=== PATIENT | female | born 1980 | race Two or more races ===

== ENCOUNTER 2017-08-31 01:38 | Emergency (ER) | payer SELFPAY ==
[~2017-08-31] VITALS: Ht 167.6 cm; Wt 72.6 kg
--- NOTE | 2017-08-31 01:50 | NUR ---
PT A/OX4 BREATHING EFFORTLESSLY ON ROOM AIR, PT C/O ABD PAIN X 3 DAYS PT DENIES N/V OR DIARRHEA, IV PLACED PT IN GOWN, ON MONITOR, PT FRIEND AT BEDSIDE, BLOOD DRAWN AND SENT TO LAB, PT STATES SHE IS NOT ABLE TO GIVE URINE AT THIS TIME, WAIVER OBTAINED, MADE AWARE WILL CONTINUE TO MONITOR.
[2017-08-31] MEDS ORDERED: HYDROMORPHONE INJ 2 MG/ML DISP.SYRIN IV ONE (02:00)
[2017-08-31] MEDS ORDERED: ONDANSETRON HCL/PF 4 MG/2 ML VIAL IVP ONE (02:00)
[2017-08-31] MEDS ORDERED: ONDANSETRON HCL/PF 4 MG/2 ML VIAL ONE (02:00)
[2017-08-31] MEDS ORDERED: IV NS 0.9% 1,000 ML BAG IV ONE (02:00)
[2017-08-31] MEDS ORDERED: HYDROMORPHONE INJ 2 MG/ML DISP.SYRIN ONE (02:00)
--- NOTE | 2017-08-31 02:10 | NUR ---
PT BACK FROM CT AND STATES SHE IS FEELING BETTER WILL CONTINUE TO MONITOR.
--- NOTE | 2017-08-31 02:13 | NUR ---
PT TO CT
[2017-08-31 02:18] LABS: BASOPHILS % (AUTO) 0.2 % (0.0-2.0); EOSINOPHILS # (AUTO) 0.2 /CMM (0.0-0.7); HEMATOCRIT 35 % (33-45); HEMOGLOBIN 11.6 g/dL (11.5-14.8); LYMPHOCYTES # (AUTO) 3.2 /CMM (0.8-4.8); LYMPHOCYTES % (AUTO) 17.2 % (20.0-44.0); MEAN CORPUSCULAR HEMOGLOBIN 33 PG (26.0-33.0); MEAN CORPUSCULAR HGB CONC 34 g/dl (31.0-36.0); MEAN CORPUSCULAR VOLUME 98 fL (82-100); MONOCYTES # (AUTO) 1.1 /CMM (0.1-1.30); MONOCYTES % (AUTO) 5.9 % (2.0-12.0); NEUTROPHILS % (AUTO) 75.7 % (43.0-81.0); PLATELET COUNT (AUTO) 277 /CMM (150-450); RDW COEFFICIENT OF VARIATION 17.5 (11.5-15.0); RED BLOOD CELL COUNT(AUTO) 3.54 MIL/uL (4.0-5.2); WHITE BLOOD COUNT (AUTO) 18.6 K/uL (4.3-11.0)
[2017-08-31 02:24] LABS: APPEARANCE,URINE SL CLOUDY (CLEAR); BILIRUBIN,URINE 1+ (NEGATIVE); BLOOD, URINE NEGATIVE Ery/uL (NEGATIVE); COLOR,URINE YELLOW (YELLOW); KETONES,URINE NEGATIVE (NEGATIVE); LEUKOCYTE ESTERASE ,URINE 2+ (NEGATIVE); NITRITE, URINE POSITIVE (NEGATIVE); PH,URINE 6.5 (5.0-8.0); PROTEIN,URINE NEGATIVE (NEGATIVE); UGLUCOSE NEGATIVE (NEGATIVE)
[2017-08-31 02:34] LABS: BACTERIA,URINE 4+ /HPF (None Seen); CALCIUM, SERUM 8.9 mg/dL (8.5-10.1); CREATININE 0.8 mg/dL (0.6-1.3); POTASSIUM 3.4 mmol/L (3.5-5.1); RBC,URINE NONE SEEN /HPF (0-2); SQUAMOUS EPITHELIAL CELL,UR Moderate /HPF (None Seen)
[2017-08-31 02:37] LABS: INR 1.06 (0.87-1.13)
[2017-08-31 02:40] LABS: ALBUMIN 3.3 g/dL (3.4-5.0); BILIRUBIN,TOTAL 1.4 mg/dL (0.2-1.0)
[2017-08-31] MEDS ORDERED: ACETAMINOPHEN 325 MG TABLET ONE (03:39)
[2017-08-31] MEDS ORDERED: CEPHALEXIN MONOHYDRATE 500 MG CAPSULE PO ONE ×2 (03:40→04:00)
[2017-08-31] MEDS ORDERED: ACETAMINOPHEN 325 MG TABLET PO ONE (04:00)
--- NOTE | 2017-08-31 04:07 | NUR ---
Patient discharged to home in stable condition. Written and verbal after care instructions given. Patient verbalizes understanding of instruction.IV removed. Catheter intact and site benign. Pressure and 4x4 applied to site. No bleeding noted.
[2017-08-31 04:11] VITALS: BP 134/74
== END 2017-08-31 04:12 | disposition home or self-care (01) ==
LOC: EDBD → ER 01:41
DX: N12 Tubulo-interstitial nephritis, not specified as acute or chronic (principal); K76.0 Fatty (change of) liver, not elsewhere classified; K70.10 Alcoholic hepatitis without ascites; J45.909 Unspecified asthma, uncomplicated
CPT/HCPCS: 36415; 74176; 80048; 80076; 81001; 83690; 84703 ×2; 85025; 85730; 87077; 87086; 87186; 96361; 96374; 96375; 99285; J1170; J2405; 81000-TC

== ENCOUNTER 2017-09-06 15:03 | Inpatient (IN) | payer MEDICAID ==
[~2017-09-06] VITALS: Ht 167.6 cm; Wt 72.6 kg
--- NOTE | 2017-09-06 15:15 | NUR ---
BIB SELF C/O R FLANK PAIN X 1 WEEK. NAD NOTED, VSS, RESP EVEN AND UNLABORED. WAITING FOR MD DIAZ.
[2017-09-06] MEDS ORDERED: IV NS 0.9% 1,000 ML BAG IV ONE ×2 (16:00→19:30)
[2017-09-06] MEDS ORDERED: KETOROLAC TROMETHAMINE INJ 30 MG/ML VIAL IV ONE (16:00)
[2017-09-06 16:03] LABS: APPEARANCE,URINE Clear (CLEAR); BILIRUBIN,URINE Negative (NEGATIVE); BLOOD, URINE Negative Ery/uL (NEGATIVE); COLOR,URINE Yellow (YELLOW); KETONES,URINE Negative (NEGATIVE); LEUKOCYTE ESTERASE ,URINE Trace (NEGATIVE); NITRITE, URINE Negative (NEGATIVE); PH,URINE 6.5 (5.0-8.0); PROTEIN,URINE Negative (NEGATIVE); UGLUCOSE Negative (NEGATIVE); UROBILINOGEN,URINE 0.2 EU/dL (0.2)
[2017-09-06] MEDS ORDERED: KETOROLAC TROMETHAMINE INJ 30 MG/ML VIAL ONE (16:05)
[2017-09-06 16:09] LABS: BASOPHILS # (AUTO) 0.3 /CMM (0.0-0.2); BASOPHILS % (AUTO) 2.2 % (0.0-2.0); EOSINOPHILS # (AUTO) 0.4 /CMM (0.0-0.7); EOSINOPHILS % (AUTO) 3.1 % (0.0-6.0); HEMATOCRIT 34 % (33-45); HEMOGLOBIN 11.2 g/dL (11.5-14.8); LYMPHOCYTES # (AUTO) 2.2 /CMM (0.8-4.8); LYMPHOCYTES % (AUTO) 17.9 % (20.0-44.0); MEAN CORPUSCULAR HEMOGLOBIN 33 PG (26.0-33.0); MEAN CORPUSCULAR HGB CONC 33 g/dl (31.0-36.0); MEAN CORPUSCULAR VOLUME 100 fL (82-100); NEUTROPHILS # (AUTO) 8.5 /CMM (1.8-8.9); NEUTROPHILS % (AUTO) 68.8 % (43.0-81.0); PLATELET COUNT (AUTO) 418 /CMM (150-450); RDW COEFFICIENT OF VARIATION 16.6 (11.5-15.0); RED BLOOD CELL COUNT(AUTO) 3.42 MIL/uL (4.0-5.2); WHITE BLOOD COUNT (AUTO) 12.4 K/uL (4.3-11.0)
[2017-09-06 16:17] LABS: CALCIUM, SERUM 8.9 mg/dL (8.5-10.1); CREATININE 0.6 mg/dL (0.6-1.3); POTASSIUM 3.4 mmol/L (3.5-5.1)
[2017-09-06 16:20] LABS: BACTERIA,URINE Few /HPF (None Seen); RBC,URINE 0-2 /HPF (0-2)
[2017-09-06 16:21] LABS: SQUAMOUS EPITHELIAL CELL,UR Moderate /HPF (None Seen)
[2017-09-06 16:23] LABS: BILIRUBIN,DIRECT 0.4 mg/dL (0.0-0.2); BILIRUBIN,TOTAL 0.8 mg/dL (0.2-1.0); TOTAL PROTEIN, SERUM 7.6 g/dL (6.4-8.2)
[2017-09-06] MEDS ORDERED: CIPROFLOXACIN IV RTU 400 MG in PREMIX 1 EA IV ONE (17:30)
--- NOTE | 2017-09-06 17:35 | NUR ---
CALLED PHARMACY FOR PREMIX CIPRO
[2017-09-06] MEDS ORDERED: ALBU18HF2 IH (19:23)
[2017-09-06] MEDS ORDERED: CEFTRIAXONE 1 G in IV D5W 50 ML IV ONE (19:30)
[2017-09-06] MEDS ORDERED: CEFTRIAXONE 1GM BAG (ER ONLY) 50 ML IV ONE (19:36)
[2017-09-06] MEDS ORDERED: MAG HYDROX/AL HYDROX/SIMETH 30 ML UDC PO PRN (20:00)
[2017-09-06] MEDS ORDERED: IV NS 0.9% 1,000 ML IV SCH (20:00)
[2017-09-06] MEDS ORDERED: ONDANSETRON HCL/PF 4 MG/2 ML VIAL IVP PRN (20:00)
[2017-09-06] MEDS ORDERED: MAGNESIUM HYDROXIDE 30 ML UDC PO PRN (20:00)
[2017-09-06] MEDS ORDERED: Z GUARD REMEDY 2 OZ OINT TP PRN (20:00)
--- NOTE | 2017-09-06 20:21 | NUR ---
REPORT GIVEN TO MARQUISE
--- NOTE | 2017-09-06 20:45 | NUR ---
RN NOTES RECEIVED NEW ADMISSION FROM ER, FEMALE, ALERT AND ORIENTED X4, WITH DX OF PYELOPNEPHRITIS, CALM, NO SOB, NO RESPIRATORY DISTRESS, COOPERATIVE, NO COMPLAIN OF PAIN AT THIS TIME, RECEIVED MEDICATION FROM ER. LUNG SOUNDS ARE CLEAR, ABDOMEN SOFT AND NON-TENDER, ACTIVE BOWEL SOUNDS, RIGHT FA PERIPHERAL LINE IS PATENT AND INFUSING WITH NS FROM ER. PATIENT ADMITTED TO SMOKING 20 CIGARETTES PER DAY AND DRINKS VODKA, 1 BOTTLE PER WEEK. PER PATIENT USED TO SMOKE 40 CIGARETTES PER DAY. NOT WILLING TO QUIT DRINKING AND SMOKING ANYTIME SOON. EDUCATED PATIENT TO PLAN OF CARE, ORIENTED TO ROOM AND USE OF CALL LIGHT. NEEDS ATTENDED, CALL LIGHT WITHIN REACH.
[2017-09-06 21:45] VITALS: BP 145/76
[2017-09-06] MEDS: HYDROCODONE/APAP 5/325MG 1 EACH TABLET PO PRN (21:51)
--- NOTE | 2017-09-06 23:14 | NUR ---
RN NOTES SEEN BY DR. ALLEN AT THE BEDSIDE
[2017-09-06] MEDS ORDERED: MORPHINE SULFATE INJ 2 MG/ML DISP.SYRIN ONE (23:45)
--- NOTE | 2017-09-06 23:55 | NUR ---
RN NOTES PATIENT WENT DOWN TO SMOKE, REFUSED TO QUIT, GIVEN EDUCATIONAL MATERIALS FOR SMOKING CESSATION, PATIENT SIGNED CONSENT TO SMOKE
[2017-09-07] MEDS: MORPHINE SULFATE INJ 2 MG/ML DISP.SYRIN IV PRN ×2 (00:05→07:59)
[2017-09-07] MEDS: ZOLPIDEM TARTRATE 5 MG TABLET PO PRN ×2 (01:29→23:22)
[2017-09-07] MEDS ORDERED: ALBUTEROL FS 2.5 MG/3 ML VIAL.NEB NEB PRN (01:30)
[2017-09-07] MEDS: HYDROCODONE/APAP 5/325MG 1 EACH TABLET PO PRN ×2 (02:33→06:33)
[2017-09-07 04:00] VITALS: BP 145/76
--- NOTE | 2017-09-07 06:28 | NUR ---
RN NOTES PATIENT IS ALERT AND AWAKE, NO SOB, RECEIVED BREATHING TX X1, PROVIDED PAIN MEDICATION TO PAIN IN RIGHT FLANK, NO ADVERSE SIDE EFFECTS TO NARCOTIC MEDICATION, NO RESPIRATORY DISTRESS, PAIN CONTROLLED MOMENTARILY BY MEDICATION. LEFT FA PERIPHERAL LINE IS INFUSING WELL, NEEDS ATTENDED, CALL LIGHT WITHIN REACH.
[2017-09-07 07:16] LABS: BASOPHILS % (AUTO) 0.2 % (0.0-2.0); EOSINOPHILS # (AUTO) 0.4 /CMM (0.0-0.7); EOSINOPHILS % (AUTO) 3.4 % (0.0-6.0); HEMATOCRIT 29 % (33-45); HEMOGLOBIN 9.8 g/dL (11.5-14.8); LYMPHOCYTES # (AUTO) 2.8 /CMM (0.8-4.8); LYMPHOCYTES % (AUTO) 25.6 % (20.0-44.0); MEAN CORPUSCULAR HEMOGLOBIN 34 PG (26.0-33.0); MEAN CORPUSCULAR HGB CONC 34 g/dl (31.0-36.0); MEAN CORPUSCULAR VOLUME 101 fL (82-100); MONOCYTES # (AUTO) 0.9 /CMM (0.1-1.30); MONOCYTES % (AUTO) 8.3 % (2.0-12.0); NEUTROPHILS # (AUTO) 6.9 /CMM (1.8-8.9); NEUTROPHILS % (AUTO) 62.5 % (43.0-81.0); PLATELET COUNT (AUTO) 339 /CMM (150-450); RDW COEFFICIENT OF VARIATION 18.1 (11.5-15.0); RED BLOOD CELL COUNT(AUTO) 2.87 MIL/uL (4.0-5.2); WHITE BLOOD COUNT (AUTO) 11.1 K/uL (4.3-11.0)
[2017-09-07 07:21] LABS: CREATININE 0.7 mg/dL (0.6-1.3); MAGNESIUM 1.4 mg/dL (1.8-2.4); PHOSPHORUS 3.5 mg/dL (2.5-4.9); POTASSIUM 3.4 mmol/L (3.5-5.1)
--- NOTE | 2017-09-07 07:30 | NUR ---
MS/RN Patient received Patient received from night time babysitter. C/O pain, morphine 2mg administered as ordered, will monitor effectiveness.
[2017-09-07 08:00] VITALS: BP 132/85
[2017-09-07 09:20] LABS: IRON, SERUM 24 ug/dl (50-175); TOTAL IRON BINDING CAPACITY 235 ug/dl (250-450)
[2017-09-07] MEDS ORDERED: POTASSIUM PHOSPHATE MM 15 MMOL in IV D5W 250 ML IV SCH (09:30)
--- NOTE | 2017-09-07 10:00 | NUR ---
MS/RN Labs Morning labs reviewed: -WBC 11.1 -Mag 1.4 -K+ 3.4 All lab results relayed to MD and replaced.
[2017-09-07] MEDS ORDERED: POTASSIUM CHLORIDE 20 MEQ TAB.PRT.SR PO SCH ×2 (11:00→12:30)
[2017-09-07] MEDS: POTASSIUM PHOSPHATE MM 7.5 MMOL in IV D5W 100 ML IV SCH ×2 (11:10→18:15)
--- NOTE | 2017-09-07 12:00 | NUR ---
MS/RN Potassium phos Two bags of K+ phos ordered, first bag hung.
--- NOTE | 2017-09-07 12:10 | NUR ---
MS/RN S/B Dr Nascimento Seen by Dr Nascimento - labs ordered for tomorrow.
[2017-09-07] MEDS: IBUPROFEN 400 MG TABLET PO PRN ×2 (13:07→18:51)
[2017-09-07] MEDS: IV NS 0.9% 1,000 ML IV PRN (15:47)
[2017-09-07] MEDS: Magnesium 1GM/D5W 100ML PREMIX 100 ML IV SCH ×4 (15:47→23:00)
[2017-09-07 16:00] VITALS: BP 129/79
--- NOTE | 2017-09-07 16:00 | NUR ---
MS/RN Midline Midline inserted to right upper arm, 18g.
--- NOTE | 2017-09-07 18:26 | NUR ---
MS/RN End note No changes in patient's condition. All IV replacements reunning behind schedule due to waiting for midline to be inserted. Pain well controlled with ibuprofen, has only required one dose of morphine which was administered this morning. Will continue to monitor andendorse to security shift manager.
--- NOTE | 2017-09-07 19:35 | NUR ---
MS RN OPENING NOTES RECEIVED PATIENT SITTING IN BED, NO SOB, NO ACUTE DISTRESS NOTED. A & O X 4. HAS SLIGHT C/O PAIN TO RIGHT LOWER BACK, WOULD LIKE TO WAIT & TAKE TYLENOL WHEN ITS DUE . IV ACCESS TO RUE, MID LINE RUNNING WITH POTASSIUM/PHOS & MAGNESIUM ORDERED. 2 MORE MAGNESIUM BAGS WILL BE REPLACED TONIGHT. WILL CONTINUE WITH NS @ 125ML/HR ONCE OTHER INFUSIONS ARE DONE. NO S/S OF INFECTION NOTED AT MIDLINE SITE. TAKES PO INTAKE. ABLE TO VERBALIZE PAIN LEVEL & NEEDS. BED IN LOW LOCKED POSITION. CALL LIGHT WITHIN REACH. WILL CONTINUE TO MONITOR.
[2017-09-07 20:00] VITALS: BP 128/80
[2017-09-07] MEDS: ACETAMINOPHEN 325 MG TABLET PO PRN (20:33)
--- NOTE | 2017-09-07 20:33 | NUR ---
PRN TYLENOL GIVEN PATIENT C/O PAIN TO RIGHT LOWER BACK, PREFERRED TO TAKE TYLENOL AT THIS TIME. PRN TYLENOL GIVEN. WILL REASSESS INDICATED.
--- NOTE | 2017-09-07 21:05 | NUR ---
MS RN NOTES PATIENT WENT OUT OF THE UNIT TO SMOKE WITH THE FAMILY MEMBER.
--- NOTE | 2017-09-07 21:35 | NUR ---
MS RN NOTES PATIENT CAME BACK FROM SMOKING WITH THE FAMILY MEMBER. HAD TO DISCONNECT RUNNING IV MAGNESIUM & OTHER IV POTASSIUM/PHOS WHILE OUT TO SMOKE. CONNECTED BACK TO IV INFUSIONS.
--- NOTE | 2017-09-07 22:00 | NUR ---
MS RN NOTES PATIENT AGAIN WENT OUT TO ESCORT THE FAMILY MEMBER, DISCONNECTED THE IV INFUSIONS PER PATIENT'S REQUEST. WILL CONNECT IT BACK ONCE BACK IN THE UNIT.
--- NOTE | 2017-09-07 22:30 | NUR ---
MS RN NOTES PATIENT CAME BACK TO THE UNIT AFTER ESCORTING THE FAMILY MEMBER OUT. CONNECTED BACK THE REQUIRED IV INFUSIONS. NO S/S OF INFECTION NOTED AT THE MIDLINE SITE. OBSERVING CLOSELY.
[2017-09-07] MEDS ORDERED: MORPHINE SULFATE INJ 10 MG/ML DISP.SYRIN ONE (22:50)
--- NOTE | 2017-09-07 22:51 | NUR ---
RN NOTES: DR ALLEN CURRENTLY IN THE UNIT, INFORMED THAT PER PHARMACY WE NEED TO CHANGE THE ORDER THERE IS NO 2MG OF MORPHINE AVAILABLE, PT IS GETTING MORPHINE 2MG IVP Q4HR FOR PAIN MANAGEMENT, INFORMED THERE'S ONLY 10MG AVAILABLE, SO WE'LL JUST WASTE THE OTHERS AND GIVE THE DESIRED/ORDERED DOSE FOR THE PT
[2017-09-07] MEDS: MORPHINE SULFATE INJ 10 MG/ML DISP.SYRIN IV PRN (22:53)
--- NOTE | 2017-09-07 22:53 | NUR ---
PRN MORPHINE GIVEN PATIENT VERBALIZED C/O PAIN TO THE RIGHT LOWER BACK 9/10, PRN MORPHINE GIVEN ORDERED. WILL REASSESS INDICATED.
--- NOTE | 2017-09-07 23:22 | NUR ---
PRN AMBIEN PATIENT REQUESTED FOR AMBIEN TO AID IN SLEEP. PRN AMBIEN GIVEN ORDERED. ALSO ENCOURAGED TO RELAX & TRY TO ADJUST HER POSITION TO COMFORTABLE POSITION TO HELP IN SLEEP & TO REDUCE THE PAIN. PATIENT VERBALIZED UNDERSTANDING & REQUESTED TO TURN THE LIGHTS OFF IN THE ROOM. WILL CONTINUE TO MONITOR.
[2017-09-08] MEDS: CEFTRIAXONE 1 G in IV D5W 50 ML IV SCH ×2 (00:12→19:58)
[2017-09-08] MEDS ORDERED: MORPHINE SULFATE INJ 10 MG/ML DISP.SYRIN ONE (02:56)
[2017-09-08] MEDS: MORPHINE SULFATE INJ 10 MG/ML DISP.SYRIN IV PRN ×2 (03:07→09:16)
[2017-09-08] MEDS: HYDROCODONE/APAP 5/325MG 1 EACH TABLET PO PRN (06:08)
--- NOTE | 2017-09-08 06:43 | NUR ---
MS RN CLOSING NOTES PATIENT SLEPT INTERMITTENTLY AT NIGHT. A & O X 4. HAD C/O PAIN TO RIGHT LOWER BACK & PRN PAIN MEDICINES WERE ADMINISTERED. AMBULATORY, CONTINENT, USES BRP. IV ACCESS TO RUE, MIDLINE RUNNING WITH NS @ 125 ML/HR, INTACT PATENT. BED IN LOW LOCKED POSITION. CALL LIGHT WITHIN REACH. NO NAUSEA/VOMITING NOTED AT NIGHT ABLE TO TOLERATE PO FLUID INTAKE. MAGNESIUM X 4 BAGS WERE REPLACED. WILL ENDORSE TO AM SHIFT NURSE FOR CONTINUITY OF CARE.
[2017-09-08 07:12] LABS: BASOPHILS % (AUTO) 0.5 % (0.0-2.0); EOSINOPHILS # (AUTO) 0.5 /CMM (0.0-0.7); EOSINOPHILS % (AUTO) 5.2 % (0.0-6.0); HEMATOCRIT 29 % (33-45); HEMOGLOBIN 9.6 g/dL (11.5-14.8); LYMPHOCYTES # (AUTO) 2.6 /CMM (0.8-4.8); LYMPHOCYTES % (AUTO) 28.7 % (20.0-44.0); MEAN CORPUSCULAR HEMOGLOBIN 34 PG (26.0-33.0); MEAN CORPUSCULAR HGB CONC 33 g/dl (31.0-36.0); MEAN CORPUSCULAR VOLUME 101 fL (82-100); MONOCYTES # (AUTO) 0.7 /CMM (0.1-1.30); MONOCYTES % (AUTO) 8.2 % (2.0-12.0); NEUTROPHILS # (AUTO) 5.2 /CMM (1.8-8.9); NEUTROPHILS % (AUTO) 57.4 % (43.0-81.0); PLATELET COUNT (AUTO) 364 /CMM (150-450); RDW COEFFICIENT OF VARIATION 17.7 (11.5-15.0); RED BLOOD CELL COUNT(AUTO) 2.86 MIL/uL (4.0-5.2)
[2017-09-08 07:18] LABS: CALCIUM, SERUM 7.6 mg/dL (8.5-10.1); CREATININE 0.6 mg/dL (0.6-1.3); POTASSIUM 3.8 mmol/L (3.5-5.1)
[2017-09-08 07:24] LABS: MAGNESIUM 2.5 mg/dL (1.8-2.4); PHOSPHORUS 3.3 mg/dL (2.5-4.9)
--- NOTE | 2017-09-08 07:25 | NUR ---
RN OPEN NOTES RECEIVED REPORT FROM CAN SORTER NURSE. WILL CONTINUE TO ASSESS AND MONITOR PATIENT THROUGH OUT MY SHIFT
[2017-09-08 08:00] VITALS: BP 136/76
[2017-09-08] MEDS: IV NS 0.9% 1,000 ML IV PRN (08:26)
--- NOTE | 2017-09-08 09:20 | NUR ---
PAIN 10/10 LOWER BACK, RADIATING TO FRONT. MORPHINE 2MG ADMINISTERED. BP 136/76 HR 64
[2017-09-08] MEDS: IBUPROFEN 400 MG TABLET PO PRN ×2 (12:25→19:58)
[2017-09-08] MEDS: ACETAMINOPHEN 325 MG TABLET PO PRN (14:11)
[2017-09-08 16:00] VITALS: BP 134/82
--- NOTE | 2017-09-08 16:00 | NUR ---
PATIENT WAS ABLE TO TAKE A SHOWER.
--- NOTE | 2017-09-08 16:15 | NUR ---
MIDLINE DRESSING CHANGED PER HOSPITAL PROTOCOL
--- NOTE | 2017-09-08 17:02 | NUR ---
DIETARY CONSULT RECOMMENDED LOW FAT, LOW CHOLESTEROL DIET. DIET WAS MODIFIED
--- NOTE | 2017-09-08 19:39 | NUR ---
RN CLOSING NOTES REPORT GAVE TO PATIENT ACCOUNTS CLERK NURSE. PATIENT IS IN BED, ALERT AND ORIENTED TO NAME, PLACE AND TIME. MIDLINE IS INTACT AND PATENT. ALL NURSING CARE ANTICIPATED. PATIENT KEPT CLEAN AND DRY. BED IN LOW POSITION, LOCKED AND TWO SIDE RAILS ARE UP. CALL LIGHT WITHIN REACH.
--- NOTE | 2017-09-08 19:50 | NUR ---
MS RN OPENING NOTES RECEIVED PATIENT SITTING IN BED, NO NAUSEA/VOMITING NOTED. HAD C/O PAIN 4/10 TO RIGHT FLANK AREA, WILL ADMINISTER MOTRIN REQUESTED BY THE PATIENT. IV ACCESS TO RUE, MID LINE RUNNING WITH NS 125 ML/HR, INTACT PATENT. NO OTHER CONCERNS NOTED AT THIS TIME. ABLE TO AMBULATE TOLERATED, USES BRP. BED IN LOW LOCKED POSITION. CALL LIGHT WITHIN REACH. WILL CONTINUE TO MONITOR.
--- NOTE | 2017-09-08 19:58 | NUR ---
PRN MOTRIN GIVEN PATIENT VERBALIZED NEED FOR PAIN MEDICINE DUE TO PAIN IN RIGHT FLANK AREA AT SCALE 4/10 & ONLY WANTED TO TAKE MOTRIN AT THIS TIME. PRN MOTRIN GIVEN. WILL REASSESS FOR THE PAIN.
[2017-09-08 20:00] VITALS: BP 139/88
--- NOTE | 2017-09-08 20:01 | NUR ---
MS RN NOTES PATIENT WANTED TO GO SEE HER FRIEND ON THE GROUND FLOOR & REASSURED THAT SHE WILL BE BACK AFTER GETTING THE FOOD FROM HER FRIEND. WILL MONITOR CLOSELY.
--- NOTE | 2017-09-08 20:20 | NUR ---
MS RN NOTES PATIENT CAME BACK TO THE UNIT WITH HER FOOD.
[2017-09-08] MEDS: ZOLPIDEM TARTRATE 5 MG TABLET PO PRN (22:15)
--- NOTE | 2017-09-08 22:15 | NUR ---
PRN AMBIEN GIVEN PATIENT ASKED FOR AMBIEN TO AID IN SLEEP. PRN AMBIEN GIVEN ORDERED BY MD. WILL REASSESS FOR EFFECTIVENESS.
--- NOTE | 2017-09-08 22:30 | NUR ---
REFUSED IV FLUIDS PATIENT REFUSED TO CONTINUE IV HYDRATION, STATED SHE DRINKS PLENTY OF FLUIDS WHILE AWAKE & DO NOT WANT IV HYDRATION AT NIGHT. SHE GETS UNCOMFORTABLE & NOT ABLE TO SLEEP WITH THE IV LINE CONNECTED. RISKS & BENEFITS WERE EXPLAINED & VERBALIZED UNDERSTANDING BUT STILL CONTINUED REFUSING TO HAVE IV HYDRATION DONE ORDERED.
[2017-09-09] MEDS: MORPHINE SULFATE INJ 10 MG/ML DISP.SYRIN IV PRN (02:40)
--- NOTE | 2017-09-09 02:40 | NUR ---
PRN MORPHINE GIVEN PATIENT VERBALIZED C/O PAIN RIGHT FLANK AREA AT SCALE 9/10 & REQUESTED FOR MORPHINE. PRN MORPHINE GIVEN. WILL REASSESS FOR EFFECTIVENESS. V/S WNL.
[2017-09-09] MEDS: ACETAMINOPHEN 325 MG TABLET PO PRN ×3 (03:50→14:57)
--- NOTE | 2017-09-09 03:50 | NUR ---
PRN TYLENOL GIVEN PATIENT CONTINUED VERBALIZING C/O PAIN IN RIGHT FLANK AREA, AT SCALE 4/10 & ASKED FOR TYLENOL. PRN TYLENOL GIVEN. WILL MONITOR FOR EFFECTIVENESS.
--- NOTE | 2017-09-09 06:48 | NUR ---
MS RN CLOSING NOTES PATIENT SLEPT INTERMITTENTLY, HAD C/O PAIN MULTIPLE TIMES. PAIN MGMT DONE, PRN MEDS GIVE ORDERED. REFUSED TO CONTINUE IV FLUIDS, STATED SHE IS DRINKING ENOUGH PO FLUIDS & CONNECTED IV LINE IS VERY UNCOMFORTABLE TO MANAGE WHILE SLEEPING, RUE MIDLINE INTACT PATENT & FLUSHED WITH NS TO KEEP OPEN. BED IN LOW LOCKED POSITION. CALL LIGHT WITHIN REACH. WILL ENDORSE TO AM SHIFT.
[2017-09-09 07:17] LABS: BASOPHILS % (AUTO) 0.3 % (0.0-2.0); EOSINOPHILS # (AUTO) 0.4 /CMM (0.0-0.7); EOSINOPHILS % (AUTO) 4.4 % (0.0-6.0); HEMATOCRIT 30 % (33-45); HEMOGLOBIN 10.3 g/dL (11.5-14.8); LYMPHOCYTES # (AUTO) 3.1 /CMM (0.8-4.8); LYMPHOCYTES % (AUTO) 33.5 % (20.0-44.0); MEAN CORPUSCULAR HEMOGLOBIN 34 PG (26.0-33.0); MEAN CORPUSCULAR HGB CONC 34 g/dl (31.0-36.0); MEAN CORPUSCULAR VOLUME 101 fL (82-100); MONOCYTES # (AUTO) 0.6 /CMM (0.1-1.30); MONOCYTES % (AUTO) 6.3 % (2.0-12.0); NEUTROPHILS # (AUTO) 5.1 /CMM (1.8-8.9); NEUTROPHILS % (AUTO) 55.5 % (43.0-81.0); PLATELET COUNT (AUTO) 447 /CMM (150-450); RDW COEFFICIENT OF VARIATION 17.3 (11.5-15.0); RED BLOOD CELL COUNT(AUTO) 3.01 MIL/uL (4.0-5.2); WHITE BLOOD COUNT (AUTO) 9.2 K/uL (4.3-11.0)
--- NOTE | 2017-09-09 07:30 | NUR ---
MS/RN Patient received Patient received form wardrobe manager. No immediate needs at this time, call light within reach, will continue to montor and ensure safety.
[2017-09-09 07:39] LABS: CALCIUM, SERUM 7.9 mg/dL (8.5-10.1); CREATININE 0.7 mg/dL (0.6-1.3); MAGNESIUM 2.3 mg/dL (1.8-2.4); POTASSIUM 4.7 mmol/L (3.5-5.1)
[2017-09-09 08:00] VITALS: BP 140/85
--- NOTE | 2017-09-09 09:31 | NUR ---
MS/RN Pain Patient complaining of abdominal pain 07/24, requested morphine. Morphine 2mg removed from omin[facility] but not administered as patient changed her mind about receiving morphine as room mate heard telling her to not get morphine as she didn't want her to sleep. Tylenol 650mg administered instead.
[2017-09-09] MEDS ORDERED: LEVO750T21 PO (11:05)
[2017-09-09] MEDS ORDERED: FLUC200T PO (11:05)
--- NOTE | 2017-09-09 12:00 | NUR ---
MS/RN S/B Dr Nascimento Seen by Dr Nascimento - patient to be discharged today and follow up with primary care doctor in three days. Prescription for diflucan and levaquin sent electronically to pharmacy.
--- NOTE | 2017-09-09 15:28 | NUR ---
MS/occupational therapy technician Patient discharged to home in stable condition. Midline and name band removed, all personal belongings signed for on belongings list. Exit care signed and patient provided a copy of both exit care and medical record. Educated patient about signs and symptoms and when to return to the nearest emergency room. Provided with information on how to register with a primary care doctor, per patient, understood and will register. Escorted to main lobby by MARINE ELECTRONICS TECHNICIAN, taxi voucher provided, pink copy of voucher given to nursing supervisor telephone clerks.
--- NOTE | 2017-09-09 18:54 | NUR ---
MS/RN Late entry - Non administer morphine Patient requested morphine to be given, upon withdrawing medication from omnicell, 8mg wasted (as partial dose) as ordered dose 2mg. Patient then refused to have morphine, so 2mg dose that was to be administered was wasted, witnessed by second RN.
== END 2017-09-09 15:10 | disposition home or self-care (01) | DRG 531 ==
LOC: ER 15:04 → EDBD 15:04 → MEDSG2 19:58
PROVIDERS: ADMIT Family Medicine; ATTEND Family Medicine
PROC: 05H533Z Insertion of Infusion Device into Right Subclavian Vein, Percutaneous Approach (ICD-10-PCS; principal; 2017-09-07)
DX: B37.49 Other urogenital candidiasis (principal); E87.2 Acidosis; E44.0 Moderate protein-calorie malnutrition; E88.09 Other disorders of plasma-protein metabolism, not elsewhere classified; N28.1 Cyst of kidney, acquired; N30.90 Cystitis, unspecified without hematuria; D72.829 Elevated white blood cell count, unspecified; E87.6 Hypokalemia; F17.210 Nicotine dependence, cigarettes, uncomplicated; J45.909 Unspecified asthma, uncomplicated; R74.8 Abnormal levels of other serum enzymes; Z68.25 Body mass index [BMI] 25.0-25.9, adult; R73.9 Hyperglycemia, unspecified; Z71.6 Tobacco abuse counseling
CPT/HCPCS: 36415; 36569; 80048-TC; 80061-TC; 80076-TC; 81000-TC; 83540-TC; 83605-TC; 83690-TC; 83735-TC; 84100-TC; 84703-TC; 85025-TC; 87040-TC; 87081-TC; 87086-TC; A4216; J0696; J0744; J1885; J2270; J3475; J3490; J7030; J7050; J7060; Z7610

== ENCOUNTER 2017-10-15 11:34 | Emergency (ER) | payer SELFPAY ==
[~2017-10-15] VITALS: Ht 167.6 cm; Wt 72.6 kg
[~2017-10-15 11:34] MED LIST: ALBU18HF2 IH; FLUC200T PO; LEVO750T21 PO
--- NOTE | 2017-10-15 11:36 | NUR ---
PT BIB ROOMMATE TO ER BED 07. C/O NAUSEA AND VOMITING, ADMITS TO BEEN BINGE DRINKING FOR 5 DAYS. DENIES SIEZURE. GOWNED AND PLACED ON MONITOR. NAD NOTED. AWAITING MD DIAZ.
--- NOTE | 2017-10-15 12:05 | NUR ---
DR SENA AT BEDSIDE FOR EVAL.
[2017-10-15] MEDS ORDERED: THIAMINE HCL 100 MG TABLET PO ONE (12:30)
[2017-10-15] MEDS ORDERED: FOLIC ACID 1 MG TABLET PO ONE (12:30)
[2017-10-15] MEDS ORDERED: IV NS 0.9% 1,000 ML BAG IV ONE (12:30)
[2017-10-15] MEDS ORDERED: ONDANSETRON HCL/PF 4 MG/2 ML VIAL IVP ONE (12:30)
[2017-10-15] MEDS ORDERED: FOLIC ACID 1 MG TABLET ONE (12:35)
[2017-10-15] MEDS ORDERED: ONDANSETRON HCL/PF 4 MG/2 ML VIAL ONE (12:35)
[2017-10-15] MEDS ORDERED: THIAMINE HCL 100 MG TABLET ONE (12:35)
--- NOTE | 2017-10-15 12:36 | NUR ---
rac #20 iv access. blood sample collected sent to lab
[2017-10-15 12:46] LABS: CALCIUM, SERUM 8.3 mg/dL (8.5-10.1); CREATININE 0.9 mg/dL (0.6-1.3); POTASSIUM 3.5 mmol/L (3.5-5.1)
[2017-10-15 12:47] LABS: HEMOGLOBIN 11.5 g/dL (11.5-14.8); MEAN CORPUSCULAR HEMOGLOBIN 32 PG (26.0-33.0)
[2017-10-15 12:50] LABS: BASOPHILS % (AUTO) 0.5 % (0.0-2.0); EOSINOPHILS # (AUTO) 0.1 /CMM (0.0-0.7); EOSINOPHILS % (AUTO) 1.5 % (0.0-6.0); HEMATOCRIT 36 % (33-45); LYMPHOCYTES # (AUTO) 3.4 /CMM (0.8-4.8); LYMPHOCYTES % (AUTO) 36.6 % (20.0-44.0); MEAN CORPUSCULAR HGB CONC 33 g/dl (31.0-36.0); MEAN CORPUSCULAR VOLUME 97 fL (82-100); MONOCYTES # (AUTO) 0.7 /CMM (0.1-1.30); NEUTROPHILS % (AUTO) 53.4 % (43.0-81.0); PLATELET COUNT (AUTO) 350 /CMM (150-450); RDW COEFFICIENT OF VARIATION 17.7 (11.5-15.0); RED BLOOD CELL COUNT(AUTO) 3.64 MIL/uL (4.0-5.2); WHITE BLOOD COUNT (AUTO) 9.2 K/uL (4.3-11.0)
[2017-10-15 12:52] LABS: ALBUMIN 3.3 g/dL (3.4-5.0); BILIRUBIN,DIRECT 0.8 mg/dL (0.0-0.2); BILIRUBIN,TOTAL 1.2 mg/dL (0.2-1.0); TOTAL PROTEIN, SERUM 8.2 g/dL (6.4-8.2)
[2017-10-15 14:13] VITALS: BP 132/99
== END 2017-10-15 14:14 | disposition home or self-care (01) ==
LOC: ER 11:35
DX: K70.10 Alcoholic hepatitis without ascites (principal); R11.2 Nausea with vomiting, unspecified; F10.10 Alcohol abuse, uncomplicated; R51 Headache; J45.909 Unspecified asthma, uncomplicated; F17.200 Nicotine dependence, unspecified, uncomplicated
CPT/HCPCS: 36415; 70450; 80048; 80076; 83690; 84703; 85025; 96374; 99285; A4606; J2405; Z7610

== ENCOUNTER 2018-01-05 21:36 | Emergency (ER) | payer MEDICAID ==
[~2018-01-05] VITALS: Ht 167.6 cm; Wt 48.1 kg
[2018-01-05] MEDS ORDERED: IPRATROPIUM NEB FS 0.5 MG/2.5 ML AMPUL.NEB ONE (21:50)
[2018-01-05] MEDS ORDERED: ALBUTEROL FS 2.5 MG/3 ML VIAL.NEB ONE (21:50)
--- NOTE | 2018-01-05 21:52 | NUR ---
BREATHING TX STARTED.
[2018-01-05] MEDS ORDERED: DEXAMETHASONE SOD PHOSPHATE 10 MG/ML VIAL ONE (21:53)
[2018-01-05] MEDS ORDERED: ALBUTEROL FS 2.5 MG/3 ML VIAL.NEB CONTNEB ONE (22:00)
[2018-01-05] MEDS ORDERED: IPRATROPIUM NEB FS 0.5 MG/2.5 ML AMPUL.NEB NEB ONE (22:00)
[2018-01-05] MEDS ORDERED: DEXAMETHASONE SOD PHOSPHATE 4 MG/ML VIAL IM ONE (22:00)
[2018-01-05 22:52] VITALS: BP 148/89
== END 2018-01-05 22:53 | disposition home or self-care (01) ==
LOC: ER 21:40
DX: J45.909 Unspecified asthma, uncomplicated (principal); M79.672 Pain in left foot; M79.671 Pain in right foot; F10.10 Alcohol abuse, uncomplicated; R79.89 Other specified abnormal findings of blood chemistry
CPT/HCPCS: 82962-TC; A4606; J1100; Z7610

== ENCOUNTER 2018-02-03 00:40 | Emergency (ER) | payer MEDICAID, OTHER ==
[~2018-02-03] VITALS: Ht 167.6 cm; Wt 63.5 kg
[2018-02-03 00:47] VITALS: BP 140/84
[2018-02-03] MEDS ORDERED: KETOROLAC TROMETHAMINE INJ 60 MG/2 ML VIAL IM ONE ×2 (01:00→01:15)
--- NOTE | 2018-02-03 01:04 | NUR ---
PT TO CT.
--- NOTE | 2018-02-03 01:06 | NUR ---
Max browning in [facility] - 02/03/18 at [address]109 [address]AY PT TO [address]
--- NOTE | 2018-02-03 01:13 | NUR ---
PT BACK FROM CT
--- NOTE | 2018-02-03 01:56 | NUR ---
PT LEFT WITHOUT DISCHARGE PAPERWORK AND PRESCRIPTIONS. MADE AWARE. VSS. PT AMBULATED WITH STEADY GAIT NOTED. PT ACCOMPANIED BY .
== END 2018-02-03 02:00 | disposition home or self-care (01) ==
LOC: ER 00:41
DX: S29.011A Strain of muscle and tendon of front wall of thorax, initial encounter (principal); F10.10 Alcohol abuse, uncomplicated; J45.909 Unspecified asthma, uncomplicated; X58.XXXA Exposure to other specified factors, initial encounter; Y93.89 Activity, other specified; Y92.89 Other specified places as the place of occurrence of the external cause; Y99.8 Other external cause status
CPT/HCPCS: 71100-TC; A4606; J1885; Z7610

== ENCOUNTER 2018-02-14 22:15 | Emergency (ER) | payer OTHER ==
[~2018-02-14] VITALS: Ht 170.2 cm; Wt 68.0 kg
--- NOTE | 2018-02-14 22:40 | NUR ---
TO BED 9 A 38 YO FEMALE PT BIB SELF, PT C/O KIDNEY PAIN X 3 DAYS AND STATES SHE DRANK A BOTTLE OF VODKA AND TOOK VICODIN AND AMBIEN. PATIENT IS AAOX4. VSS. BREATHING EVEN AND UNLABORED. SKIN WARM AND DRY. COMFORT MEASURES RENDERED.
[2018-02-14] MEDS ORDERED: ONDANSETRON HCL/PF 4 MG/2 ML VIAL ONE (23:15)
[2018-02-14] MEDS ORDERED: HYDROMORPHONE INJ 2 MG/ML DISP.SYRIN ONE (23:15)
[2018-02-14 23:18] LABS: APPEARANCE,URINE CLEAR (CLEAR); BILIRUBIN,URINE NEGATIVE (NEGATIVE); BLOOD, URINE NEGATIVE Ery/uL (NEGATIVE); COLOR,URINE YELLOW (YELLOW); KETONES,URINE NEGATIVE (NEGATIVE); LEUKOCYTE ESTERASE ,URINE NEGATIVE (NEGATIVE); NITRITE, URINE NEGATIVE (NEGATIVE); PROTEIN,URINE NEGATIVE (NEGATIVE); UGLUCOSE NEGATIVE (NEGATIVE); UROBILINOGEN,URINE 0.2 EU/dL (0.2)
[2018-02-14] MEDS ORDERED: IV NS 0.9% 1,000 ML BAG IV ONE (23:30)
[2018-02-14] MEDS ORDERED: HYDROMORPHONE INJ 2 MG/ML DISP.SYRIN IV ONE (23:30)
[2018-02-14] MEDS ORDERED: ONDANSETRON HCL/PF 4 MG/2 ML VIAL IVP ONE (23:30)
--- NOTE | 2018-02-14 23:30 | NUR ---
STARTED A SALINE LOCK ON THE LAC G18, BLOOD DRAWN AND SENT TO LAB.
[2018-02-14 23:33] LABS: BASOPHILS # (AUTO) 0.1 /CMM (0.0-0.2); BASOPHILS % (AUTO) 0.8 % (0.0-2.0); EOSINOPHILS % (AUTO) 1.4 % (0.0-6.0); HEMATOCRIT 35 % (33-45); HEMOGLOBIN 11.4 g/dL (11.5-14.8); LYMPHOCYTES # (AUTO) 4.9 /CMM (0.8-4.8); LYMPHOCYTES % (AUTO) 54.3 % (20.0-44.0); MEAN CORPUSCULAR HGB CONC 33 g/dl (31.0-36.0); MEAN CORPUSCULAR VOLUME 84 fL (82-100); MONOCYTES # (AUTO) 0.6 /CMM (0.1-1.30); MONOCYTES % (AUTO) 6.5 % (2.0-12.0); NEUTROPHILS # (AUTO) 3.3 /CMM (1.8-8.9); PLATELET COUNT (AUTO) 399 /CMM (150-450); RDW COEFFICIENT OF VARIATION 17.4 (11.5-15.0); RED BLOOD CELL COUNT(AUTO) 4.08 MIL/uL (4.0-5.2); WHITE BLOOD COUNT (AUTO) 9.1 K/uL (4.3-11.0)
--- NOTE | 2018-02-14 23:33 | NUR ---
MEDICATED PATIENT ORDERED BY DR SALES.
--- NOTE | 2018-02-14 23:36 | NUR ---
PATIENT TO CT.
[2018-02-14 23:47] LABS: CALCIUM, SERUM 8.4 mg/dL (8.5-10.1); CREATININE 0.8 mg/dL (0.6-1.3); POTASSIUM 3.7 mmol/L (3.5-5.1)
[2018-02-14 23:49] LABS: INR 1.03 (0.87-1.13)
[2018-02-14 23:54] LABS: ALBUMIN 3.6 g/dL (3.4-5.0); BILIRUBIN,DIRECT 0.1 mg/dL (0.0-0.2); BILIRUBIN,TOTAL 0.2 mg/dL (0.2-1.0); TOTAL PROTEIN, SERUM 7.9 g/dL (6.4-8.2)
[2018-02-15 00:38] VITALS: BP 144/74
--- NOTE | 2018-02-15 00:38 | NUR ---
IV removed. Catheter intact and site benign. Pressure and 4x4 applied to site. No bleeding noted. Patient discharged to home in stable condition. Written and verbal after care instructions given. Patient verbalizes understanding of instruction. Patient is ambulatory with steady gait, vss. nad noted. Instructed patient not to drive. no further complaints.
== END 2018-02-15 00:39 | disposition home or self-care (01) ==
LOC: ER 22:21
DX: S20.211A Contusion of right front wall of thorax, initial encounter (principal); F10.20 Alcohol dependence, uncomplicated; J45.909 Unspecified asthma, uncomplicated; F14.10 Cocaine abuse, uncomplicated; Z71.6 Tobacco abuse counseling; X58.XXXA Exposure to other specified factors, initial encounter; Y93.89 Activity, other specified; Y92.89 Other specified places as the place of occurrence of the external cause; Y99.8 Other external cause status
CPT/HCPCS: 36415; 74176; 80048; 80076; 80305; 81001; 83690; 84703; 85025; 85730; 96361; 96374; 96375; 99285; 99406; A4606; J1170; J2405; J7030; Z7610; 81000-TC

== ENCOUNTER 2018-06-03 21:04 | Emergency (ER) | payer OTHER ==
[~2018-06-03] VITALS: Ht 167.6 cm; Wt 68.0 kg
[2018-06-03 21:49] VITALS: BP 143/92
--- NOTE | 2018-06-03 22:00 | NUR ---
called pt in wr, no reponse
--- NOTE | 2018-06-03 23:05 | NUR ---
called pt in wr, no reponse
== END 2018-06-03 23:06 | disposition home or self-care (01) ==
LOC: ER 21:05
DX: Z53.21 Procedure and treatment not carried out due to patient leaving prior to being seen by health care provider (principal)
CPT/HCPCS: A4606; Z7610

== ENCOUNTER 2018-07-18 04:19 | Emergency (ER) | payer OTHER ==
[~2018-07-18] VITALS: Ht 167.6 cm; Wt 59.0 kg
--- NOTE | 2018-07-18 04:46 | NUR ---
[id number] C/O RLQ SHARP ABD PAIN STARTED 30 MINS AGO, UNSURE IF . PT DENIES N/V/D. PT IS AAOX4. SKIN WNL. RESP EVEN AND UNLABORED. NO S/S OF ACUTE DISTRESS NOTED. PT PLACED ON MONITOR AND POX PT SAFETY AND COMOFORT MEASURES IN PLACE. BEDSIDE FOR EVAL.
[2018-07-18 04:49] VITALS: BP 152/65
--- NOTE | 2018-07-18 04:55 | NUR ---
PLUG AND MOLD FINISHER BEDSIDE FOR BLOOD DRAW
[2018-07-18 05:12] LABS: BASOPHILS # (AUTO) 0.1 /CMM (0.0-0.2); BASOPHILS % (AUTO) 1.1 % (0.0-2.0); EOSINOPHILS % (AUTO) 2.8 % (0.0-6.0); HEMATOCRIT 43 % (33-45); HEMOGLOBIN 13.9 g/dL (11.5-14.8); LYMPHOCYTES # (AUTO) 3.6 /CMM (0.8-4.8); LYMPHOCYTES % (AUTO) 44.5 % (20.0-44.0); MEAN CORPUSCULAR HEMOGLOBIN 30 PG (26.0-33.0); MEAN CORPUSCULAR HGB CONC 32 g/dl (31.0-36.0); MEAN CORPUSCULAR VOLUME 94 fL (82-100); MONOCYTES # (AUTO) 0.3 /CMM (0.1-1.30); MONOCYTES % (AUTO) 4.2 % (2.0-12.0); NEUTROPHILS # (AUTO) 3.8 /CMM (1.8-8.9); NEUTROPHILS % (AUTO) 47.4 % (43.0-81.0); PLATELET COUNT (AUTO) 419 /CMM (150-450); RDW COEFFICIENT OF VARIATION 22.8 (11.5-15.0); RED BLOOD CELL COUNT(AUTO) 4.59 MIL/uL (4.0-5.2); WHITE BLOOD COUNT (AUTO) 8.1 K/uL (4.3-11.0)
[2018-07-18 05:16] LABS: APPEARANCE,URINE CLOUDY (CLEAR); BILIRUBIN,URINE NEGATIVE (NEGATIVE); BLOOD, URINE TRACE Ery/uL (NEGATIVE); COLOR,URINE YELLOW (YELLOW); KETONES,URINE NEGATIVE (NEGATIVE); LEUKOCYTE ESTERASE ,URINE NEGATIVE (NEGATIVE); NITRITE, URINE NEGATIVE (NEGATIVE); PH,URINE 6.5 (5.0-8.0); PROTEIN,URINE NEGATIVE (NEGATIVE); UGLUCOSE NEGATIVE (NEGATIVE); UROBILINOGEN,URINE 0.2 EU/dL (0.2)
[2018-07-18 05:23] LABS: CALCIUM, SERUM 8.8 mg/dL (8.5-10.1); CREATININE 0.9 mg/dL (0.6-1.3); POTASSIUM 3.9 mmol/L (3.5-5.1)
[2018-07-18 05:29] LABS: BILIRUBIN,DIRECT 0.3 mg/dL (0.0-0.2); BILIRUBIN,TOTAL 0.6 mg/dL (0.2-1.0); TOTAL PROTEIN, SERUM 8.5 g/dL (6.4-8.2)
--- NOTE | 2018-07-18 05:58 | NUR ---
Patient is resting comfortably in bed with eyes closed. Easily aroused. VSS
[2018-07-18 06:06] LABS: BACTERIA,URINE Few /HPF (None Seen); RBC,URINE 0-2 /HPF (0-2); SQUAMOUS EPITHELIAL CELL,UR Moderate /HPF (None Seen); WBC,URINE 0-2 /HPF (0-3)
--- NOTE | 2018-07-18 06:50 | NUR ---
Patient eloped from facility. ER MD notified. Pt was last seen coming back from CT scan at 604
== END 2018-07-18 07:05 | disposition left against medical advice (07) ==
LOC: ER 04:22
DX: F10.129 Alcohol abuse with intoxication, unspecified (principal); R10.9 Unspecified abdominal pain; J45.909 Unspecified asthma, uncomplicated; F17.200 Nicotine dependence, unspecified, uncomplicated; Z88.8 Allergy status to other drugs, medicaments and biological substances; Y90.9 Presence of alcohol in blood, level not specified
CPT/HCPCS: 36415; 80048-TC; 80076-TC; 81000-TC; 83690-TC; 84703-TC; 85025-TC; A4606; G0480; Z7610

== ENCOUNTER 2018-11-23 23:19 | Emergency (ER) | payer OTHER ==
[~2018-11-23] VITALS: Ht 172.7 cm; Wt 68.0 kg
--- NOTE | 2018-11-23 23:23 | NUR ---
CELESTE PT CALLED 911 BECAUSE SHE WAS DRINKING FOR 5 DAYS, DRANK "A BOTTLE OF VODKA". PT IS NOT COMPLIANT, YELLING AND TRYING TO LEAVE. PT DOES NOT HAVE A STEADY GAIT. RESP EVEN AND UNLABORED. NAD NOTED.
[2018-11-24] MEDS ORDERED: HALOPERIDOL LACTATE INJ 5 MG/ML VIAL ONE (00:21)
[2018-11-24] MEDS ORDERED: HALOPERIDOL LACTATE INJ 5 MG/ML VIAL IM ONE (00:30)
--- NOTE | 2018-11-24 00:35 | NUR ---
PT KEEPS GETTING OUT OF ROOM, NOT FOLLOWING COMMANDS, TRYING TO LEAVE. ER MD AWARE.
--- NOTE | 2018-11-24 01:07 | NUR ---
PT AMBULATED TO THE BATHROOM WITH A STEADY GAIT. URINE SAMPLE OBTAINED. PT RETURNED TO ER #[id number].
--- NOTE | 2018-11-24 01:34 | NUR ---
Patient is resting comfortably in bed with eyes closed. Easily aroused. VSS. NAD NOTED. RESPIRATIONS EVEN AND UNLABORED. Addendum: 11/24/18 at 0208 by COLIN CALL LIGHT WITHIN REACH. PT ON THE MONITOR AND PULSE OX.
--- NOTE | 2018-11-24 02:08 | NUR ---
Patient is resting comfortably in bed with eyes closed. Easily aroused. VSS. NAD NOTED. PT ON THE MONITOR AND PULSE OX, RESPIRATIONS EVEN AND UNLABORED. CALL LIGHT WITHIN REACH.
--- NOTE | 2018-11-24 04:39 | NUR ---
Patient is resting comfortably in bed with eyes closed. Easily aroused. VSS. NAD NOTED. RESPIRATIONS EVEN AND UNLABORED. CALL LIGHT WITHIN REACH.
--- NOTE | 2018-11-24 04:53 | NUR ---
Patient discharged to home in stable condition. PT AAXO4. NAD NOTED. VSS. AMBULATORY WITH STEADY GAIT. NO SI/HI. PT REFUSED ACI, PT STATED "I WANT TO GO HOME."
[2018-11-24 04:56] VITALS: BP 136/76
== END 2018-11-24 04:58 | disposition home or self-care (01) ==
LOC: ER 23:20
DX: F10.129 Alcohol abuse with intoxication, unspecified (principal); J45.909 Unspecified asthma, uncomplicated; K70.10 Alcoholic hepatitis without ascites; F17.200 Nicotine dependence, unspecified, uncomplicated; Y90.9 Presence of alcohol in blood, level not specified
CPT/HCPCS: 82962; 96372; 99283; A4606; J1630; Z7610

== ENCOUNTER 2018-12-19 16:45 | Emergency (ER) | payer OTHER ==
[~2018-12-19] VITALS: Ht 167.6 cm; Wt 78.0 kg
[2018-12-19 16:49] VITALS: BP 144/87
--- NOTE | 2018-12-19 16:49 | NUR ---
[id number], C/O SOB SINCE YESTERDAY, RUN OUT OF VENTOLIN HHN, ALBUTEROL 5MG GIVEN BY EMS. BILATERAL WHEEZING NOTED. TO ER BED 1, HOOKED TO MONITOR, AWAITING MD DIAZ.
--- NOTE | 2018-12-19 17:05 | NUR ---
DR LAM AT BEDSIDE
--- NOTE | 2018-12-19 17:10 | NUR ---
PT REFUSED PERIPHERAL IV INSERTION. STATED SHE NEEDS TO GO AND HAVE A LOT OF THINGS TO DO. WOULD JUST LIKE HER PRESCRIPTION FOR VENTOLIN. DR LAM MADE AWARE.
--- NOTE | 2018-12-19 17:12 | NUR ---
PT REFUSED BREATHING TX
[2018-12-19] MEDS ORDERED: ALBUTEROL FS 2.5 MG/3 ML VIAL.NEB ONE (17:14)
[2018-12-19] MEDS ORDERED: IPRATROPIUM NEB FS 0.5 MG/2.5 ML AMPUL.NEB ONE (17:14)
--- NOTE | 2018-12-19 17:21 | NUR ---
RT PT REFUSED BREATHING TX, DR. LAM NOTIFIED AND EXPLAINED TO PT THAT SHE NEEDS IT, PT STILL REFUSES. MEDICATION RETURNED.
[2018-12-19] MEDS ORDERED: IV NS 0.9% 1,000 ML BAG IV ONE (17:30)
[2018-12-19] MEDS ORDERED: methylPREDNISolone SOD SUCC 125 MG/2ML VIAL IV ONE (17:30)
[2018-12-19] MEDS ORDERED: IPRATROPIUM NEB FS 0.5 MG/2.5 ML AMPUL.NEB NEB ONE (17:30)
[2018-12-19] MEDS ORDERED: ALBUTEROL FS 2.5 MG/3 ML VIAL.NEB CONTNEB ONE (17:30)
[2018-12-19] MEDS ORDERED: methylPREDNISolone SOD SUCC 125 MG/2ML VIAL ONE (17:31)
--- NOTE | 2018-12-19 17:42 | NUR ---
EXPLAINED THAT HE CANNOT DISCHARGE PT YET. EXPLAINED TO PT THE RISKS AND BENEFITS AND RISKS OF LEAVING THE HOSPITAL AT THIS TIME. PT REFUSED TO SIGN AMA FORM. PT AMBULATORT AND IN STABLE CONDITION WHEN LEFT ED DEPARTMENT.
[2018-12-19] MEDS ORDERED: methylPREDNISolone SOD SUCC 125 MG/2ML VIAL IM ONE (18:00)
== END 2018-12-19 18:20 | disposition left against medical advice (07) ==
LOC: ER 16:47
DX: J45.909 Unspecified asthma, uncomplicated (principal); F17.200 Nicotine dependence, unspecified, uncomplicated; F10.10 Alcohol abuse, uncomplicated; Y90.9 Presence of alcohol in blood, level not specified
CPT/HCPCS: 96372; 99283; A4606; J2930; J7030

== ENCOUNTER 2019-08-04 20:26 | Emergency (ER) | payer OTHER ==
[~2019-08-04] VITALS: Ht 167.6 cm; Wt 68.0 kg
[2019-08-04 20:31] VITALS: BP 152/95
[2019-08-04] MEDS ORDERED: LORAZEPAM INJ 2 MG/ML VIAL ONE (20:56)
[2019-08-04] MEDS ORDERED: ONDANSETRON HCL/PF 4 MG/2 ML VIAL ONE (20:56)
[2019-08-04] MEDS ORDERED: LORAZEPAM INJ 2 MG/ML VIAL IVP ONE (21:00)
[2019-08-04] MEDS ORDERED: ONDANSETRON HCL/PF 4 MG/2 ML VIAL IVP ONE (21:00)
[2019-08-04] MEDS ORDERED: IV NS 0.9% 1,000 ML BAG IV ONE (21:00)
[2019-08-04] MEDS ORDERED: ONDANSETRON 4 MG TAB.RAPDIS PO ONE (21:00)
--- NOTE | 2019-08-04 21:00 | NUR ---
[id number] FROM HOME +ETOH. DENIES SI/HI. PT AAOX3, VSS. DENIES CP, SOB, DIZZINESS @ THIS TIME. SEEN & EVAL'D BY FREEMAN MENENDEZ & WILL CONT TO MONITOR.
--- NOTE | 2019-08-04 21:10 | NUR ---
MEDICATED PER GEMMA'S PA. PT LAKISHA BRUNO.
[2019-08-04 21:15] LABS: BASOPHILS # (AUTO) 0.1 /CMM (0.0-0.2); EOSINOPHILS % (AUTO) 3.1 % (0.0-6.0); HEMATOCRIT 33 % (33-45); HEMOGLOBIN 10.7 g/dL (11.5-14.8); LYMPHOCYTES # (AUTO) 3.8 /CMM (0.8-4.8); LYMPHOCYTES % (AUTO) 41.4 % (20.0-44.0); MEAN CORPUSCULAR HGB CONC 32 g/dl (31.0-36.0); MEAN CORPUSCULAR VOLUME 87 fL (82-100); MONOCYTES # (AUTO) 0.5 /CMM (0.1-1.30); MONOCYTES % (AUTO) 5.4 % (2.0-12.0); NEUTROPHILS # (AUTO) 4.5 /CMM (1.8-8.9); NEUTROPHILS % (AUTO) 49.1 % (43.0-81.0); PLATELET COUNT (AUTO) 713 /CMM (150-450); RED BLOOD CELL COUNT(AUTO) 3.81 MIL/uL (4.0-5.2); WHITE BLOOD COUNT (AUTO) 9.2 K/uL (4.3-11.0)
[2019-08-04 21:23] LABS: CALCIUM, SERUM 8.5 mg/dL (8.5-10.1); CARBON DIOXIDE 26 mmol/L (21-32); CHLORIDE 109 mmol/L (98-107); CREATININE 0.9 mg/dL (0.6-1.3); GLUCOSE 87 mg/dL (74-106); POTASSIUM 3.3 mmol/L (3.5-5.1); SODIUM SERUM 148 mmol/L (136-145); UREA NITROGEN, BLOOD 8 mg/dL (7-18)
--- NOTE | 2019-08-04 21:25 | NUR ---
PT PULLED OUT IV & LEFT ED WITH BOYFRIEND. FREEMAN MENENDEZ AWARE.
[2019-08-04 21:31] LABS: ACETAMINOPHEN < 2 ug/ml (10-30); ALANINE AMINOTRANSFERASE 44 U/L (12-78); ALBUMIN 3.4 g/dL (3.4-5.0); ALCOHOL, BLOOD 385 mg/dL (0-0); ALKALINE PHOSPHATASE 92 U/L (46-116); ASPARTATE AMINOTRANSFERASE 46 U/L (15-37); BILIRUBIN,DIRECT 0.1 mg/dL (0.0-0.2); BILIRUBIN,TOTAL 0.1 mg/dL (0.2-1.0); TOTAL PROTEIN, SERUM 7.5 g/dL (6.4-8.2)
== END 2019-08-04 21:43 | disposition left against medical advice (07) ==
LOC: ER 20:26
DX: F10.129 Alcohol abuse with intoxication, unspecified (principal); J45.909 Unspecified asthma, uncomplicated; F17.200 Nicotine dependence, unspecified, uncomplicated; Z79.899 Other long term (current) drug therapy; Y90.8 Blood alcohol level of 240 mg/100 ml or more
CPT/HCPCS: 36415; 80048; 80076; 80307; 80329; 85025; 96374; 96375; 99283; G0480; J2060; J2405; J7030

== ENCOUNTER 2019-08-04 23:35 | Emergency (ER) | payer OTHER ==
[~2019-08-04] VITALS: Ht 167.6 cm; Wt 68.0 kg
--- NOTE | 2019-08-04 23:40 | NUR ---
"CELESTE88 AND [employer] FROM [place]. +ETOH, SCREAMING AT STAFF ON ARRIVAL PLACED ON HOLD BY [employer]. PT RECENTLY ELOPED FROM FACILITY " PT NOT ANSWERING QUESTION APPROPRIETLY, PT ON MONITOR, VSS, NAD NOTED, PENDING MD DIAZ
[2019-08-04] MEDS ORDERED: HALOPERIDOL LACTATE INJ 5 MG/ML VIAL ONE (23:53)
[2019-08-05] MEDS ORDERED: HALOPERIDOL LACTATE INJ 5 MG/ML VIAL IM ONE
[2019-08-05] MEDS ORDERED: IV NS 0.9% 1,000 ML BAG IV ONE
[2019-08-05 00:19] LABS: BASOPHILS # (AUTO) 0.1 /CMM (0.0-0.2); BASOPHILS % (AUTO) 1.2 % (0.0-2.0); EOSINOPHILS % (AUTO) 2.2 % (0.0-6.0); HEMATOCRIT 33 % (33-45); HEMOGLOBIN 10.8 g/dL (11.5-14.8); LYMPHOCYTES # (AUTO) 4.3 /CMM (0.8-4.8); MEAN CORPUSCULAR HGB CONC 33 g/dl (31.0-36.0); MEAN CORPUSCULAR VOLUME 87 fL (82-100); MONOCYTES # (AUTO) 0.4 /CMM (0.1-1.30); MONOCYTES % (AUTO) 4.1 % (2.0-12.0); NEUTROPHILS # (AUTO) 5.1 /CMM (1.8-8.9); NEUTROPHILS % (AUTO) 50.5 % (43.0-81.0); PLATELET COUNT (AUTO) 697 /CMM (150-450); RED BLOOD CELL COUNT(AUTO) 3.84 MIL/uL (4.0-5.2); WHITE BLOOD COUNT (AUTO) 10.1 K/uL (4.3-11.0)
[2019-08-05 00:24] LABS: CALCIUM, SERUM 8.4 mg/dL (8.5-10.1); POTASSIUM 3.3 mmol/L (3.5-5.1)
[2019-08-05 00:32] LABS: ALBUMIN 3.4 g/dL (3.4-5.0); BILIRUBIN,DIRECT 0.1 mg/dL (0.0-0.2); BILIRUBIN,TOTAL 0.1 mg/dL (0.2-1.0); TOTAL PROTEIN, SERUM 7.5 g/dL (6.4-8.2)
--- NOTE | 2019-08-05 02:30 | NUR ---
URINE COLLECTED AND SENT TO LAB
[2019-08-05 02:37] LABS: APPEARANCE,URINE Clear (CLEAR); BILIRUBIN,URINE Negative (NEGATIVE); BLOOD, URINE Trace-lysed Ery/uL (NEGATIVE); COLOR,URINE Yellow (YELLOW); KETONES,URINE Negative (NEGATIVE); LEUKOCYTE ESTERASE ,URINE Negative (NEGATIVE); NITRITE, URINE Negative (NEGATIVE); PH,URINE 5.5 (5.0-8.0); PROTEIN,URINE Negative (NEGATIVE); UGLUCOSE Negative (NEGATIVE); UROBILINOGEN,URINE 0.2 EU/dL (0.2)
[2019-08-05 02:49] LABS: BACTERIA,URINE None seen /HPF (None Seen); RBC,URINE 0-2 /HPF (0-2); SQUAMOUS EPITHELIAL CELL,UR Few /HPF (None Seen); WBC,URINE 0-2 /HPF (0-3)
--- NOTE | 2019-08-05 12:34 | NUR ---
LUNCH TRAY DELIVERED. PT RESTING QUIETLY, NAD NOTED, WITH SITTER.
[2019-08-05 12:55] VITALS: BP 149/88
--- NOTE | 2019-08-05 13:15 | NUR ---
UPDATED PT ON POC
--- NOTE | 2019-08-05 15:45 | NUR ---
UPDATED PT ON POC. DR FERNANDEZ SPEAKING WITH PT.
--- NOTE | 2019-08-05 16:02 | NUR ---
OK PER TO DAVEY. DENIES SI OR HI. FRIEND NAVDEEP AT THE BEDSIDE. IV removed. Catheter intact and site benign. Pressure and 4x4 applied to site. No bleeding noted.
--- NOTE | 2019-08-05 16:04 | NUR ---
PT REQUESTS NO DC VITALS
--- NOTE | 2019-08-05 16:07 | NUR ---
Patient discharged to home in stable condition. Written and verbal after care instructions given. Patient verbalizes understanding of instruction.
== END 2019-08-05 16:08 | disposition home or self-care (01) ==
LOC: ER 23:42
DX: F10.129 Alcohol abuse with intoxication, unspecified (principal); R45.851 Suicidal ideations; J45.909 Unspecified asthma, uncomplicated; F17.200 Nicotine dependence, unspecified, uncomplicated; Z79.899 Other long term (current) drug therapy; Y90.8 Blood alcohol level of 240 mg/100 ml or more
CPT/HCPCS: 36415; 80048; 80076; 80305; 80307 ×3; 81001; 85025; 96372; 99285; J1630; J7030; 81000-TC; G0480

== ENCOUNTER 2021-10-22 00:51 | Inpatient (IN) | payer OTHER ==
[~2021-10-22] VITALS: Ht 167.6 cm; Wt 73.2 kg
--- NOTE | 2021-10-22 01:00 | NUR ---
PATIENT BIB PA FROM [facility], C/O ABD PAIN AND DISTENSION. PATIENT IS A/O X 4, RR EVEN AND UNLABORED, NO SOB NOTED. PATIENT PLACED ON MONITORS.
[2021-10-22 01:36] LABS: BASOPHILS # (AUTO) 0.2 K/uL (0.0-0.2); BASOPHILS % (AUTO) 0.6 % (0.0-2.0); EOSINOPHILS % (AUTO) 0.6 % (0.0-6.0); HEMATOCRIT 27 % (33-45); HEMOGLOBIN 8.7 g/dL (11.5-14.8); LYMPHOCYTES # (AUTO) 2.5 K/uL (0.8-4.8); LYMPHOCYTES % (AUTO) 8.3 % (20.0-44.0); MEAN CORPUSCULAR HGB CONC 32 g/dl (31.0-36.0); MEAN CORPUSCULAR VOLUME 98 fL (82-100); MONOCYTES # (AUTO) 1.4 K/uL (0.1-1.30); MONOCYTES % (AUTO) 4.6 % (2.0-12.0); NEUTROPHILS # (AUTO) 26.3 K/uL (1.8-8.9); NEUTROPHILS % (AUTO) 85.9 % (43.0-81.0); PLATELET COUNT (AUTO) 714 K/uL (150-450)
--- NOTE | 2021-10-22 01:36 | NUR ---
PATIENT TAKEN TO CT
[2021-10-22 01:50] LABS: ALANINE AMINOTRANSFERASE 19 U/L (12-78); ALBUMIN 1.8 g/dL (3.4-5.0); ALKALINE PHOSPHATASE 216 U/L (46-116); ASPARTATE AMINOTRANSFERASE 117 U/L (15-37); BILIRUBIN,DIRECT 9.4 mg/dL (0.0-0.2); BILIRUBIN,TOTAL 11.2 mg/dL (0.2-1.0); CALCIUM, SERUM 8.3 mg/dL (8.5-10.1); CARBON DIOXIDE 30 mmol/L (21-32); CHLORIDE 93 mmol/L (98-107); CREATININE 0.7 mg/dL (0.6-1.3); GLUCOSE 100 mg/dL (74-106); LIPASE 68 U/L (73-393); SODIUM SERUM 131 mmol/L (136-145); TOTAL PROTEIN, SERUM 7.1 g/dL (6.4-8.2); UREA NITROGEN, BLOOD 6 mg/dL (7-18)
[2021-10-22 01:51] LABS: BILIRUBIN,URINE LARGE (NEGATIVE); COLOR,URINE YELLOW (YELLOW); LEUKOCYTE ESTERASE ,URINE NEGATIVE (NEGATIVE); NITRITE, URINE NEGATIVE (NEGATIVE); PROTEIN,URINE TRACE mg/dl (NEGATIVE); UGLUCOSE NEGATIVE (NEGATIVE)
[2021-10-22] MEDS ORDERED: ONDANSETRON HCL/PF 4 MG/2 ML VIAL ONE ×2 (01:55→13:10)
[2021-10-22] MEDS ORDERED: MORPHINE SULFATE INJ 4 MG/ML DISP.SYRIN ONE (01:55)
[2021-10-22 01:57] LABS: POTASSIUM 2.5 mmol/L (3.5-5.1)
[2021-10-22] MEDS ORDERED: POTASSIUM CHLORIDE 10 MEQ/50 ML PREMIXED IVPB FOR PERIPHERAL LINE IV ONE (02:00)
[2021-10-22] MEDS ORDERED: ONDANSETRON HCL/PF 4 MG/2 ML VIAL IV ONE ×2 (02:00→13:30)
[2021-10-22] MEDS ORDERED: MORPHINE SULFATE INJ 2 MG/ML DISP.SYRIN IV ONE (02:00)
[2021-10-22] MEDS ORDERED: POTASSIUM CL. PREMIX PERIPHER. 50 ML ONE (02:07)
[2021-10-22] MEDS ORDERED: POTASSIUM CL. PREMIX PERIPHER. 100 ML ONE (02:21)
--- NOTE | 2021-10-22 02:30 | NUR ---
BAG 1 OF 4 POTASSIUM ADMINISTERED
[2021-10-22] MEDS ORDERED: VANCOMYCIN 1 GM VIAL ONE (03:26)
[2021-10-22] MEDS ORDERED: PIPERACILLIN /TAZOBACTAM 3.375 G VIAL IV ONE (03:26)
--- NOTE | 2021-10-22 03:30 | NUR ---
BAG 2 OF 4 POTASSIUM ADMINISTERED
--- NOTE | 2021-10-22 04:30 | NUR ---
BAG 3 OF 4 POTASSIUM ADMINISTERED
--- NOTE | 2021-10-22 04:40 | NUR ---
BROOCH AND BRACELET MAKER NOTES RECEIVED PATIENT VIA GURCRISPIN FROM ER. COMPLAINS OF PAIN. NO RESPIRATORY DISTRESS NOTED. VITAL SIGNS: ZQ=285/77, P=102, O2=95% PAIN 9/10. ON TELE MONITORING. IV ACCESS ON THE RAC G#20 INTACT AND PATENT. PATIENT REFUSED SKIN CHECK. ALL NEEDS ATTENDED. ID BAND ON. CALLED MD TO GET ORDER FOR PAIN MEDICATION. BED IN THE LOWEST POSITION AND LOCKED. SIDE RAILS UP AND BED LOCKED. WILL CONTINUE TO MONITOR THE PATIENT.
--- NOTE | 2021-10-22 05:30 | NUR ---
BAG 4 OF 4 POTASSIUM ADMINISTERED
--- NOTE | 2021-10-22 06:09 | NUR ---
DR ELENA ON THE PHONE W/ DR DICKERSON FROM [facility]
--- NOTE | 2021-10-22 06:12 | NUR ---
ACCORDING TO DR ELENA, PER DR MARIN PT WILL BE TRANSFERRED TO [facility]
[2021-10-22 06:31] LABS: WHITE BLOOD COUNT (AUTO) 30.6 K/uL (4.3-11.0)
--- NOTE | 2021-10-22 08:14 | NUR ---
PT AMBULATED AND RETURNED FROM RESTROOM
[2021-10-22] MEDS ORDERED: HYDROMORPHONE 1 MG/1 ML DISP.SYRIN ONE ×2 (08:24→11:48)
[2021-10-22] MEDS ORDERED: HYDROMORPHONE 1 MG/1 ML DISP.SYRIN IV ONE ×3 (08:30→12:00)
[2021-10-22 09:11] LABS: BACTERIA,URINE Few /HPF (None Seen); RBC,URINE NONE SEEN /HPF (0-2); WBC,URINE NONE SEEN /HPF (0-3)
[2021-10-22 09:12] LABS: SQUAMOUS EPITHELIAL CELL,UR Rare /HPF (None Seen); URINE AMORPHOUS PHOSPHATES Many /HPF (None Seen)
[2021-10-22 09:18] LABS: EOSINOPHILS % (MANUAL) 2 % (0-4); LYMPHOCYTES % (MANUAL) 13 % (16-48); MONOCYTES % (MANUAL) 5 % (0-11.0); NEUTROPHILS % (MANUAL) 80 (42-76)
--- NOTE | 2021-10-22 09:51 | NUR ---
PT SITTING IN BED. NEEDS MET.
--- NOTE | 2021-10-22 10:34 | NUR ---
CALLED JEANCARLOS AT [facility] REGARDING PT STATUS. WAS NOTIFIED THAT THERE ARE STILL NO BEDS AVAILABLE.
--- NOTE | 2021-10-22 10:55 | NUR ---
PT SITTING IN BED. NEEDS MET. VSS.
--- NOTE | 2021-10-22 11:50 | NUR ---
PT REPORTS PAIN. MD AWARE. DILAUDID WILL BE GIVEN.
--- NOTE | 2021-10-22 13:20 | NUR ---
PT REPORTS NAUSEA. MD AWARE. ZOFRAN GIVEN
--- NOTE | 2021-10-22 14:38 | NUR ---
Max browning in [facility] - 10/22/21 at 1439 by KIMBERLY ONELIA HOOVER AT PT'S BEDSIDE
--- NOTE | 2021-10-22 15:59 | NUR ---
ROOM 310-1
--- NOTE | 2021-10-22 16:09 | NUR ---
REPORT GIVEN TO NURSE EMMETT
[2021-10-22] MEDS ORDERED: TRAZ-257 PO (16:10)
[2021-10-22] MEDS ORDERED: MULT-447 PO (16:10)
[2021-10-22] MEDS ORDERED: ASCO500C17 PO (16:10)
[2021-10-22] MEDS ORDERED: FURO40TA5 PO (16:10)
[2021-10-22] MEDS ORDERED: PANT40TA49 PO (16:10)
[2021-10-22] MEDS ORDERED: THIA100T88 PO (16:10)
[2021-10-22] MEDS ORDERED: FOLI0.4T6 PO (16:10)
[2021-10-22] MEDS ORDERED: FERR325T23 PO (16:10)
[2021-10-22] MEDS ORDERED: HYDR-3973 PO (16:10)
[2021-10-22] MEDS ORDERED: DOCU100T10 PO (16:10)
[2021-10-22] MEDS ORDERED: CHOL200013 PO (16:10)
--- NOTE | 2021-10-22 16:30 | NUR ---
PT TRANSPORTED TO FLOOR
[2021-10-22] MEDS ORDERED: ACETAMINOPHEN 325 MG TABLET PO PRN (17:30)
[2021-10-22] MEDS ORDERED: ONDANSETRON HCL/PF 4 MG/2 ML VIAL IVP PRN (17:30)
[2021-10-22] MEDS ORDERED: MAGNESIUM HYDROXIDE 30 ML UDC PO PRN (17:30)
[2021-10-22] MEDS ORDERED: Z GUARD REMEDY 2 OZ OINT TP PRN (17:30)
[2021-10-22] MEDS ORDERED: MAG HYDROX/AL HYDROX/SIMETH 30 ML UDC PO PRN (17:30)
[2021-10-22] MEDS: MORPHINE SULFATE INJ 2 MG/ML DISP.SYRIN IV PRN ×2 (17:57→20:10)
[2021-10-22] MEDS ORDERED: PIPERACILLIN /TAZOBACTAM 4.5 G in IV D5W 50 ML IV SCH (18:00)
--- NOTE | 2021-10-22 19:15 | NUR ---
BLANKET CUTTING MACHINE OPERATOR OPENING NOTE PATIENT IS AWAKE IN HER BED. PATIENT IS A NEW ADMIT AND APPEARS AGITATED. PATIENT IS UNWILLING TO COMPLY WITH TREATMENT PLAN INCLUDING CONTINUAL PLACEMENT OF TELE MONITOR STATING, "I DIDN'T SAY THERE WAS ANYTHING WRONG WITH MY HEART". PATIENT WAS EDUCATED ON NEED FOR TELE MONITOR, BUT PATIENT STILL DISSATISFIED. PATIENT EXPRESSES DISSATISFACTION WITH HOSPITAL, HOSPITAL FURNITURE, ROOM TEMP, MEDS ORDER PER MD, ETC.. A/OX4. PAIN IS A 10/10. WILL GIVE PAIN MEDS PER MD ORDER. TELE ST 112. NO S/S OF DISTRESS; BREATHING SYMMETRICAL. WILL CONTINUE TO MONITOR PATIENT THROUGHOUT SHIFT. SAFETY MEASURES IN PLACE: BED AT LOWEST POSITION, RAILS UP X2, CALL PEARCE WITHIN REACH.
[2021-10-22] MEDS ORDERED: ALBUTEROL FS 2.5 MG/3 ML VIAL.NEB NEB PRN (19:30)
[2021-10-22 20:00] VITALS: BP 123/68
[2021-10-22] MEDS: TRAZODONE 50 MG TABLET PO PRN (20:09)
[2021-10-22] MEDS: ZOSYN IVPB 3.375 G in IV D5W 50ml IV SCH (20:11)
--- NOTE | 2021-10-22 21:59 | NUR ---
VACUUM FRAME OPERATOR NOTE PATIENT WAS REASSESSED FOR PAIN SHE WAS GIVEN MORPHINE PER MD. PATIENT'S PAIN WENT FROM A 10/10 TO A 9/10. IT IS TOO EARLY FOR HER NEXT MORPHINE DOSE. SHE WAS OFFERED NORCO PER MD ORDER, BUT PATIENT REFUSED. I ALSO ATTEMPTED TO REDIRECT HER TO RETURN TO WATCH HER PHONE VIDEOS FOR NON-PHARM MEASURES TO REDUCE PAIN, BUT SHE DECLINED. SHE HAS ALSO STATED SHE IS COLD. MANY BLANKETS HAVE BEEN PROVIDED. I BROUGHT HER A FRESH, WARM BLANKET, BUT PATIENT REFUSED. WILL CONTINUE TO MONITOR PATIENT.
[2021-10-22] MEDS: VANCOMYCIN 1 GM in IV D5W 250 ML IV SCH (22:17)
[2021-10-22] MEDS: HYDROCODONE/APAP 5/325MG TABLET PO PRN (22:46)
--- NOTE | 2021-10-23 | NUR ---
CLINICAL RN MANAGER NOTE PATIENT REFUSED VITALS BY THE CELL INSTALLERALEX. PATIENT HAS BEEN OVERALL MOSTLY NON-COMPLIANT WITH CARE PLAN.
[2021-10-23] MEDS: MORPHINE SULFATE INJ 2 MG/ML DISP.SYRIN IV PRN ×6 (00:26→22:15)
[2021-10-23] MEDS: ZOSYN IVPB 3.375 G in IV D5W 50ml IV SCH ×4 (01:38→19:33)
[2021-10-23] MEDS: VANCOMYCIN 1 GM in IV D5W 250 ML IV SCH ×2 (02:53→10:40)
[2021-10-23 04:00] VITALS: BP 126/68
--- NOTE | 2021-10-23 06:17 | NUR ---
CHISEL TRIMMER CLOSING NOTE PATIENT IS ASLEEP IN BED. A/OX4. NO S/S OF DISTRESS; BREATHING SYMMETRICAL. IV RAC #20G PATENT AND INTACT. PATIENT IS ON A COURSE OF ABX. TELE SR 98 W/ OCCASIONAL PVCs PER HACK SAW OPERATOR. PATIENT HAS NOT BEEN COMBATIVE BUT HAS BEEN VERY UNCOOPERATIVE THROUGHOUT THE NIGHT. IT TAKES A LOT OF ENCOURAGEMENT FOR THE PATIENT TO COMPLY. SHE HAS BEEN VERY ANXIOUS D/T PAIN AND CURRENT OVERALL HEALTH AND, SPECIFICALLY, WITH HER HEPATIC HEALTH. ALL SAFETY MEASURES IN PLACE: BED AT LOWEST POSITION, RAILS UP X2, CALL PEARCE WITHIN REACH. WILL ENDORSE TO THE FOLLOWING SHIFT.
[2021-10-23 06:43] LABS: BASOPHILS # (AUTO) 0.2 K/uL (0.0-0.2); BASOPHILS % (AUTO) 0.6 % (0.0-2.0); EOSINOPHILS % (AUTO) 0.9 % (0.0-6.0); HEMATOCRIT 22 % (33-45); HEMOGLOBIN 7.4 g/dL (11.5-14.8); LYMPHOCYTES # (AUTO) 2.7 K/uL (0.8-4.8); LYMPHOCYTES % (AUTO) 9.9 % (20.0-44.0); MEAN CORPUSCULAR HGB CONC 34 g/dl (31.0-36.0); MEAN CORPUSCULAR VOLUME 97 fL (82-100); MONOCYTES # (AUTO) 1.6 K/uL (0.1-1.30); NEUTROPHILS # (AUTO) 22.6 K/uL (1.8-8.9); NEUTROPHILS % (AUTO) 82.6 % (43.0-81.0); PLATELET COUNT (AUTO) 544 K/uL (150-450); RED BLOOD CELL COUNT(AUTO) 2.24 MIL/uL (4.0-5.2); WHITE BLOOD COUNT (AUTO) 27.3 K/uL (4.3-11.0)
[2021-10-23 07:00] LABS: CALCIUM, SERUM 8.2 mg/dL (8.5-10.1); CREATININE 0.7 mg/dL (0.6-1.3); MAGNESIUM 2.1 mg/dL (1.8-2.4); PHOSPHORUS 4.6 mg/dL (2.5-4.9)
--- NOTE | 2021-10-23 07:15 | NUR ---
RN NOTE- CRITICAL VALUE / LAB K - 2.6 DR ALEJANDRO INFORMED. AWAITING RESPONSE
[2021-10-23 07:16] LABS: POTASSIUM 2.6 mmol/L (3.5-5.1)
--- NOTE | 2021-10-23 07:53 | NUR ---
RN OPENING NOTE- PT ASLEEP, EASILY AWAKENED, AGITATED. OPPOSITIONAL. VS STABLE, SIDE RAILS UP, BED LOCKED , CALL LIGHT IN REACH. MONITOR / ASSIST
[2021-10-23 08:23] VITALS: BP 100/46
[2021-10-23] MEDS: FOLIC ACID 1 MG TABLET PO SCH (08:54)
[2021-10-23] MEDS: THIAMINE HCL 100 MG TABLET PO SCH (08:54)
[2021-10-23] MEDS: PANTOPRAZOLE 40 MG TABLET.DR PO SCH (08:54)
--- NOTE | 2021-10-23 09:00 | NUR ---
ADMINISTERED MORPHINE PER MD ORDER. VS WNL. WILL CONTINUE TO MONITOR.
[2021-10-23 09:09] LABS: BAND % (MANUAL) 1 % (0.0-5.0); EOSINOPHILS % (MANUAL) 2 % (0-4); LYMPHOCYTES % (MANUAL) 6 % (16-48); MONOCYTES % (MANUAL) 7 % (0-11.0); NEUTROPHILS % (MANUAL) 84 (42-76)
[2021-10-23] MEDS ORDERED: POTASSIUM CHLORIDE 10 MEQ/50 ML PREMIXED IVPB FOR PERIPHERAL LINE IV ONE (10:00)
[2021-10-23] MEDS ORDERED: Potassium Chloride 10 MEQ, LIDOCAINE HCL/PF 1% 1 ML in IV D5W 50 ML IV SCH (11:00)
[2021-10-23] MEDS: POTASSIUM CHLORIDE 20 MEQ TAB.PRT.SR PO SCH ×2 (11:30→14:05)
[2021-10-23] MEDS: SPIRONOLACTONE 25 MG TABLET PO SCH (11:30)
[2021-10-23 12:00] VITALS: BP 119/68
--- NOTE | 2021-10-23 12:44 | NUR ---
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
[2021-10-23] MEDS ORDERED: POTASSIUM CHLORIDE 10 MEQ TABLET.SA PO SCH (13:00)
--- NOTE | 2021-10-23 13:30 | NUR ---
REMOVED 1360 ML OF FLUID. PT STABLE. WILL CONTINUE TO MONITOR.
[2021-10-23] MEDS ORDERED: POTASSIUM CHLORIDE 20 MEQ TAB.PRT.SR PO ONE (14:04)
--- NOTE | 2021-10-23 14:05 | NUR ---
ADMINISTERED MORPHINE FOR PAIN PER MD ORDER. VS WNL. WILL CONTINUE TO MONITOR.
--- NOTE | 2021-10-23 14:06 | NUR ---
NON-ADMIN STOCK POTASSIUM. WAS TO PULL OUT POTASSIUM FROM PYXIS.
--- NOTE | 2021-10-23 14:42 | NUR ---
GAVE REPORT TO TIANNA, PATIENT IS STABLE.
[2021-10-23 16:09] VITALS: BP 140/68
[2021-10-23] MEDS: HYDROCODONE/APAP 5/325MG TABLET PO PRN (17:19)
--- NOTE | 2021-10-23 18:41 | NUR ---
RN CLOSING NOTE- PT PARACENTESIS COMPLETED 1300 REMOVED, REPLACED DRESSING IT WAS LEAKING. PT W PAIN. NORCO INEFFECTIVE. MSO4 ADMINISTERED W FAIR RESULTS,. PT LABILE TEARFUL, OPPOSITIONAL AT TIMES. PACES ROOM AND GRADY. VS STABLE. BED LOCKED , SIDE RAILS UP, CALL LIGHT CLOSE.
--- NOTE | 2021-10-23 18:43 | NUR ---
RN NOTE- PT REMOVED TELE./ REFUSES MONITORING
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
[2021-10-23 20:03] VITALS: BP 112/62
[2021-10-23] MEDS: VANCOMYCIN 0.75 GM in IV D5W 250 ML IV SCH (20:04)
[2021-10-23] MEDS: ALPRAZOLAM 0.25 MG TABLET PO PRN (21:07)
[2021-10-23] MEDS: TRAZODONE 50 MG TABLET PO PRN (23:04)
[2021-10-24] MEDS: ZOSYN IVPB 3.375 G in IV D5W 50ml IV SCH ×2 (01:08→06:53)
[2021-10-24 01:14] VITALS: BP 126/68
[2021-10-24] MEDS: MORPHINE SULFATE INJ 2 MG/ML DISP.SYRIN IV PRN ×3 (03:46→13:01)
[2021-10-24] MEDS: VANCOMYCIN 0.75 GM in IV D5W 250 ML IV SCH ×2 (03:47→11:25)
[2021-10-24 04:18] VITALS: BP 117/64
[2021-10-24] MEDS: HYDROCODONE/APAP 5/325MG TABLET PO PRN (06:03)
[2021-10-24] MEDS: ALPRAZOLAM 0.25 MG TABLET PO PRN (06:04)
[2021-10-24 07:29] LABS: BASOPHILS # (AUTO) 0.2 K/uL (0.0-0.2)
--- NOTE | 2021-10-24 07:30 | NUR ---
MS RN OPENING NOTES PATIENT IN BED WITH EYES CLOSED, RESPONDS TO VERBAL/PHYSICAL STIMULI. PT IS A&OX4 WITH NO S/S OF RESPIRATORY DISTRESS OR DISCOMFORT AT THIS TIME. RIGHTAC#[address] AND INTACT WITH NO IVF RUNNING AT THIS TIME. SAFETY MEASURES IN PLACE: BED LOCKED AND IN LOWEST POSITION WITH CALL LIGHT WITHIN REACH. WILL CONTINUE TO MONITOR PT.
[2021-10-24 07:42] LABS: BASOPHILS % (AUTO) 0.9 % (0.0-2.0); EOSINOPHILS % (AUTO) 1.2 % (0.0-6.0); HEMATOCRIT 23 % (33-45); HEMOGLOBIN 7.6 g/dL (11.5-14.8); LYMPHOCYTES # (AUTO) 2.8 K/uL (0.8-4.8); LYMPHOCYTES % (AUTO) 10.1 % (20.0-44.0); MEAN CORPUSCULAR HGB CONC 33 g/dl (31.0-36.0); MEAN CORPUSCULAR VOLUME 98 fL (82-100); MONOCYTES # (AUTO) 1.9 K/uL (0.1-1.30); MONOCYTES % (AUTO) 6.9 % (2.0-12.0); NEUTROPHILS # (AUTO) 22.8 K/uL (1.8-8.9); NEUTROPHILS % (AUTO) 80.9 % (43.0-81.0); PLATELET COUNT (AUTO) 575 K/uL (150-450); RED BLOOD CELL COUNT(AUTO) 2.36 MIL/uL (4.0-5.2); WHITE BLOOD COUNT (AUTO) 28.1 K/uL (4.3-11.0)
--- NOTE | 2021-10-24 07:44 | NUR ---
SUPERVISOR TUMBLING AND ROLLING CLOSING NOTES RECEIVED PATIENT SLEEP IN BED COMFORTABLY, AROUSABLE TO VERBAL STIMULI, BED IN LOW POSITION, CALL LIGHTS WITHIN REACH, NO COMPLAIN OF PAIN AND DISCOMFORT AT THIS TIME, ON PAIN MANAGEMENT, WITH IV LINE AT RAC#20 SL, PATIENT IS AMBULATORY A/OX4 ABLE TO MAKE NEEDS KNOWN, PATIENT KEPT CLEAN AND DRY, ALL NEEDS MET, ENDORSE TO INCOMING SHIFT.
[2021-10-24 07:57] LABS: CALCIUM, SERUM 8.4 mg/dL (8.5-10.1); CREATININE 0.8 mg/dL (0.6-1.3); POTASSIUM 3.8 mmol/L (3.5-5.1)
[2021-10-24 07:58] LABS: ALBUMIN 1.5 g/dL (3.4-5.0); BILIRUBIN,TOTAL 10.7 mg/dL (0.2-1.0); TOTAL PROTEIN, SERUM 6.2 g/dL (6.4-8.2)
[2021-10-24 08:00] VITALS: BP 116/66
[2021-10-24] MEDS: FOLIC ACID 1 MG TABLET PO SCH (08:35)
[2021-10-24] MEDS: THIAMINE HCL 100 MG TABLET PO SCH (08:35)
[2021-10-24] MEDS: SPIRONOLACTONE 25 MG TABLET PO SCH (08:35)
[2021-10-24] MEDS ORDERED: FUROSEMIDE 40 MG TABLET PO SCH (09:00)
[2021-10-24] MEDS: PANTOPRAZOLE 40 MG TABLET.DR PO SCH (09:12)
[2021-10-24 09:16] LABS: EOSINOPHILS % (MANUAL) 1 % (0-4); LYMPHOCYTES % (MANUAL) 11 % (16-48); MONOCYTES % (MANUAL) 6 % (0-11.0); NEUTROPHILS % (MANUAL) 82 (42-76)
[2021-10-24] MEDS ORDERED: SPIR25TA6 PO (11:34)
[2021-10-24] MEDS ORDERED: AMOX-430 PO (11:36)
[2021-10-24 16:00] VITALS: BP 113/63
--- NOTE | 2021-10-24 17:15 | NUR ---
MS RN NOTES PT TO BE D/C TO [facility]. SPOKE TO NURSE CHANDRA TO ENDORSE REPORT. NO APPARENT DISTRESS NOTED UPON D/C. PAIN MEDICATION GIVEN PER MD ORDER PRN. PT VERBALIZED UNDERSTANDING OF D/C TODAY. SKIN WARM TO TOUCH CLEAR AND INTACT. PERIPHERAL IV AND NAME BAND REMOVED PRIOR TO D/C. SURGICAL MASK GIVEN TO PT. EXIT CARE DOCUMENT AND EDUCATIONAL PAMPHLET GIVEN TO PT. HEALTH TEACHING PROVIDED REGARDING CURRENT MEDS AND DISEASE PROCESS. REMINDED PT ABOUT NEW PRESCRIPTIONS. PT VERBALIZED UNDERSTANDING AND GRATITUDE. PT LEFT UNIT IN STABLE CONDITION AT 1715 VIA AMBULANCE TRANSPORTATION.
== END 2021-10-24 17:20 | DRG 280 ==
LOC: ER 01:03 → TELE 16:15 → MED 10-23 20:24
PROVIDERS: ATTEND Internal Medicine
PROC: 0W9G3ZZ Drainage of Peritoneal Cavity, Percutaneous Approach (ICD-10-PCS; principal; 2021-10-22)
DX: K70.11 Alcoholic hepatitis with ascites (principal); K70.31 Alcoholic cirrhosis of liver with ascites; D68.4 Acquired coagulation factor deficiency; J15.9 Unspecified bacterial pneumonia; D64.9 Anemia, unspecified; E87.1 Hypo-osmolality and hyponatremia; J45.909 Unspecified asthma, uncomplicated; Z79.899 Other long term (current) drug therapy; D75.839 Thrombocytosis, unspecified; E87.6 Hypokalemia; K76.0 Fatty (change of) liver, not elsewhere classified; Z20.822 Contact with and (suspected) exposure to COVID-19; F10.288 Alcohol dependence with other alcohol-induced disorder; Z87.891 Personal history of nicotine dependence
CPT/HCPCS: 36415; 71045-TC; 76942-TC; 80048-TC; 80053-TC; 80076-TC; 80202-TC; 81001; 82040-TC; 83605-TC; 83690-TC; 83735-TC; 84100-TC; 84484-TC; 85025-TC; 85730-TC; 87040-TC; 87070-TC; 87081-TC; 88112-TC; 88305-TC; 89051-TC; C9803; G0378; J1170; J2270; J2405; J2543; J3370; J3480; J3490; J7050; J7060

== ENCOUNTER 2022-06-02 17:00 | Emergency (ER) | payer OTHER ==
[~2022-06-02] VITALS: Ht 167.6 cm; Wt 65.8 kg
[~2022-06-02 17:00] MED LIST changes: +AMOX-430 PO; +ASCO500C17 PO; +CHOL200013 PO; +DOCU100T10 PO; +FERR325T23 PO; -FLUC200T PO; +FOLI0.4T6 PO; +FURO40TA5 PO; +HYDR-3973 PO; -LEVO750T21 PO; +MULT-447 PO; +PANT40TA49 PO; +SPIR25TA6 PO; +THIA100T88 PO; +TRAZ-257 PO
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
[2022-06-02] MEDS ORDERED: IBUPROFEN 600 MG TABLET PO ONE (18:00)
[2022-06-02] MEDS ORDERED: ACETAMINOPHEN ES 500 MG TABLET PO ONE (18:00)
[2022-06-02] MEDS ORDERED: IBUPROFEN 600 MG TABLET ONE (18:20)
[2022-06-02] MEDS ORDERED: ACETAMINOPHEN ES 500 MG TABLET ONE (18:20)
--- NOTE | 2022-06-02 19:28 | NUR ---
Patient discharged in stable condition with [employer] femal officer. Written and verbal after care instructions given. Patient and the officer verbalized understanding of instruction.
[2022-06-02 19:29] VITALS: BP 119/75
== END 2022-06-02 19:29 | disposition home or self-care (01) ==
LOC: ER 17:15
DX: T74.21XA Adult sexual abuse, confirmed, initial encounter (principal); J45.909 Unspecified asthma, uncomplicated; F17.200 Nicotine dependence, unspecified, uncomplicated; Z79.899 Other long term (current) drug therapy

== ENCOUNTER 2022-09-15 00:21 | Emergency (ER) | payer OTHER ==
[~2022-09-15] VITALS: Ht 167.6 cm; Wt 59.0 kg
[2022-09-15] MEDS ORDERED: ONDANSETRON HCL/PF 4 MG/2 ML VIAL ONE (01:28)
[2022-09-15] MEDS ORDERED: IV NS 0.9% 1,000 ML BAG IV ONE (01:30)
[2022-09-15] MEDS ORDERED: ONDANSETRON HCL/PF 4 MG/2 ML VIAL IVP ONE (01:30)
[2022-09-15] MEDS ORDERED: MORPHINE SULFATE INJ 2 MG/ML DISP.SYRIN IV ONE (01:30)
[2022-09-15] MEDS ORDERED: LIDOCAINE VISCOUS 2% UD 15 ML UDC MM ONE (02:00)
[2022-09-15] MEDS ORDERED: MAG HYDROX/AL HYDROX/SIMETH 30 ML UDC PO ONE (02:00)
[2022-09-15] MEDS ORDERED: MAG HYDROX/AL HYDROX/SIMETH 30 ML UDC ONE (02:03)
[2022-09-15] MEDS ORDERED: LIDOCAINE VISCOUS 2% UD 15 ML UDC ONE (02:03)
--- NOTE | 2022-09-15 02:18 | NUR ---
Patient does not wish to proceed with medical care recommended by Dr. Carver. Patient given information related to possible complications, up to and including , which could occur as a result of leaving the hospital at this time. Patient verbalizes understanding of risks involved due to leaving against medical advice. Patient has signed AMA form.
[2022-09-15 02:49] LABS: BASOPHILS # (AUTO) 0.1 K/uL (0.0-0.2); BASOPHILS % (AUTO) 0.9 % (0.0-2.0); EOSINOPHILS % (AUTO) 1.2 % (0.0-6.0); HEMATOCRIT 33 % (33-45); LYMPHOCYTES # (AUTO) 1.5 K/uL (0.8-4.8); MEAN CORPUSCULAR HGB CONC 33 g/dl (31.0-36.0); MEAN CORPUSCULAR VOLUME 101 fL (82-100); MONOCYTES # (AUTO) 0.6 K/uL (0.1-1.30); MONOCYTES % (AUTO) 5.4 % (2.0-12.0); NEUTROPHILS # (AUTO) 9.1 K/uL (1.8-8.9); NEUTROPHILS % (AUTO) 79.5 % (43.0-81.0); PLATELET COUNT (AUTO) 240 K/uL (150-450); WHITE BLOOD COUNT (AUTO) 11.5 K/uL (4.3-11.0)
[2022-09-15 02:50] LABS: ALBUMIN 2.8 g/dL (3.4-5.0); BILIRUBIN,DIRECT 2.7 mg/dL (0.0-0.2); BILIRUBIN,TOTAL 3.2 mg/dL (0.2-1.0); CALCIUM, SERUM 9.5 mg/dL (8.5-10.1); CREATININE 0.9 mg/dL (0.6-1.3); POTASSIUM 3.5 mmol/L (3.5-5.1); TOTAL PROTEIN, SERUM 8.4 g/dL (6.4-8.2)
[2022-09-15 03:17] VITALS: BP 112/66
[2022-09-15 04:04] LABS: BILIRUBIN,URINE SMALL (NEGATIVE); COLOR,URINE YELLOW (YELLOW); LEUKOCYTE ESTERASE ,URINE NEGATIVE (NEGATIVE); NITRITE, URINE NEGATIVE (NEGATIVE); PROTEIN,URINE NEGATIVE (NEGATIVE); UGLUCOSE NEGATIVE (NEGATIVE)
[2022-09-15 04:21] LABS: BACTERIA,URINE Many /HPF (None Seen); RBC,URINE 0-2 /HPF (0-2); SQUAMOUS EPITHELIAL CELL,UR Few /HPF (None Seen)
== END 2022-09-15 03:17 | disposition left against medical advice (07) ==
LOC: ER 00:27
DX: R10.84 Generalized abdominal pain (principal); R14.0 Abdominal distension (gaseous); J45.909 Unspecified asthma, uncomplicated; F17.200 Nicotine dependence, unspecified, uncomplicated; Z79.899 Other long term (current) drug therapy
CPT/HCPCS: 99284; 96374; 96361; 71045; 85025; 80048; 87077; 87086; 83690; 80076; 84703; 87186; 81001; 36415; 85730; 80320; 80307; J2405; J7030; G0480